=== PATIENT | female | born 1945 | race Caucasian/White ===

== ENCOUNTER → 2020-09-28 09:42 | Outpatient (CLI) | payer OTHER, SELFPAY ==
[2020-09-28 10:51] LABS: Estimated Glomerular Filt Rate > 60.0 mL/min (>60); HEMOLYSIS < 15 (0-50); Potassium 4.1 mmol/L (3.4-5.1)
== END ==
PROVIDERS: Referring Provider Family Medicine; Visit Provider Family Medicine
DX: I10 Essential (primary) hypertension (principal)
CPT/HCPCS: 36415; 82565; 83695; 84132

== ENCOUNTER → 2021-04-28 09:42 | Outpatient (CLI) | payer OTHER, SELFPAY ==
--- NOTE | 2021-04-28 09:52 | DI.MRI.S_ITS ---
PROCEDURE: MR HEAD/BRAIN WO CON INDICATIONS: Multiple sclerosis TECHNIQUE: Non-contrast axial T1 spin echo, axial T2 fast spin echo, sagittal and axial FLAIR, coronal T2 fast spin echo, axial gradient echo, axial diffusion and ADC through the brain. COMPARISON: Outside Facility, RG, MRI BRAIN WITHOUT CONTRAST, 08/09/2020, 11:54. FINDINGS: Image quality: Excellent. CSF spaces: Ventricles appear symmetric in size and shape. Basal cisterns are patent. No extra-axial fluid collections. Brain: No intracranial bleeds or mass effects. There is cerebral volume loss for age. Mild scattered areas of periventricular and subcortical white matter hyperintensities are present. They are all unchanged in size and number compared to prior exam. No lesions demonstrate restricted diffusion. Brainstem appears normal. Diffusion-weighted images show no acute ischemic insults. No chronic ischemic insults. Normal intravascular flow voids are present. Skull and face: Calvarial bone marrow is normal in signal. Orbits are normal. Sinuses: Sinuses demonstrate minimal pansinus mucosal thickening. No fluid levels. Mild fluid is noted in the left mastoid air cells. IMPRESSION: Stable appearance of periventricular and subcortical white matter hyperintensities in terms of size and number. While these have an appearance of chronic microvascular ischemic change, appearance can also be seen with demyelinating disease, as noted in clinical history. Correlation is recommended. Dictated by: Bre Guerrero M.D. on 04/29/2021 at 12:15 Approved by: Bre Guerrero M.D. on 04/29/2021 at 12:39
== END ==
PROVIDERS: PCP Student in an Organized Health Care Education/Training Program; Referring Provider Psychiatry & Neurology Neurology; Visit Provider Psychiatry & Neurology Neurology
DX: G35 Multiple sclerosis (principal)
CPT/HCPCS: 70551

== ENCOUNTER → 2021-05-27 10:30 | Outpatient (CLI) | payer OTHER, SELFPAY ==
--- NOTE | 2021-05-27 | DI.MG.S_ITS ---
UNILATERAL LEFT DIGITAL SCREENING MAMMOGRAM 3D/2D WITH CAD POST MASTECTOMY: 05/27/2021 CLINICAL: Routine screening. Routine screening. Personal history of right breast cancer. Comparison is made to exams dated: 05/25/2020 mammogram and 03/30/2019 mammogram - outside facility. There are scattered fibroglandular elements in left breast. Current study was also evaluated with a Computer Aided Detection (CAD) system. No significant masses, calcifications, or other findings are seen in the breast. There has been no significant interval change. IMPRESSION: NEGATIVE There is no mammographic evidence of malignancy. A 1 year screening mammogram is recommended. This exam was interpreted at Station ID: [id number]. NOTE: For mammograms, a report in lay terms will be sent to the patient. Approximately 15% of breast malignancies will not be visualized mammographically. In the management of a palpable breast mass, a negative mammogram must not discourage biopsy of a clinically suspicious lesion. Electronically Signed By: Ashley meraz/diego:05/27/2021 14:22:37 letter sent: Normal Exam ACR BI-RADS Category 1: Negative [id number]
== END ==
PROVIDERS: PCP Student in an Organized Health Care Education/Training Program; Referring Provider Student in an Organized Health Care Education/Training Program; Visit Provider Student in an Organized Health Care Education/Training Program
DX: Z12.31 Encounter for screening mammogram for malignant neoplasm of breast (principal); Z80.3 Family history of malignant neoplasm of breast
CPT/HCPCS: 77063; 77067

== ENCOUNTER 2021-06-23 14:58 | Observation (INO) | payer OTHER, SELFPAY ==
[2021-06-23 15:36] VITALS: BP 155/68; PULSE 55; RESP 19; TEMP 36.9; O2SAT 100; BMI 27.1
--- NOTE | 2021-06-23 15:44 | ED_ITS ---
HPI - Wound/Laceration <MACK Chowdhury - Last Filed: 06/23/21 19:56> General Chief Complaint: Wound/Laceration Stated Complaint: bit by her cat yesterday, swollen and painful Time Seen by Provider: 06/23/21 15:30 Source: patient Mode of arrival: Family Vehicle History of Present Illness HPI narrative: This is a pleasant 76-year-old female who presents to the emergency room today for left hand pain after a cat bite which occurred last night at 1800 hours. Patient states that overnight her pain has increased dramatically, she has erythema the dorsum of her left hand, decreased mobility with flexion and extension to all of her fingers, cat bite to the middle dorsum of her left hand over the MCP joint of her thumb. Patient states that she needs a new tetanus vaccination, she does not remember when her is was, she called the nurse line this morning and got a prescription of Augmentin and has taken 1 dose at 1015 today. Patient states that it has gotten much worse today even since taking her antibiotic, her pain is extreme, she states she took ibuprofen this morning early. She denies any drainage from the puncture wounds, they are currently scabbed over without any bleeding. She denies any allergy to antibiotics. Patient denies any fever, chills, nausea, vomiting, diarrhea, lightheadedness, or weakness. She states that the redness and pain has gotten worse quickly, she states that is her hand is so tender that she can not touch or show some but on anything. Related Data Home Medications Medication Instructions Recorded Confirmed atorvastatin 20 mg tablet 20 mg PO BEDTIME 06/23/21 06/23/21 hydrochlorothiazide 25 mg tablet 25 mg PO DAILY 06/23/21 06/23/21 levothyroxine 50 mcg tablet 50 mcg PO DAILY 06/23/21 06/23/21 liothyronine 5 mcg tablet 5 mcg PO DAILY 06/23/21 06/23/21 losartan 25 mg tablet 25 mg PO DAILY 06/23/21 06/23/21 Allergies Allergy/AdvReac Type Severity Reaction Status Date / Time No Known Drug Allergies Allergy Verified 06/23/21 16:10 Review of Systems <MACK Chowdhury - Last Filed: 06/23/21 19:56> Review of Systems Narrative: General: denies fever, chills, malaise, sweats, fatigue Head/Neck: denies headache, neck pain, dizziness Eyes: denies visual changes, eye pain Cardio: denies chest pain, palpitations, edema Respiratory: denies dyspnea, cough, orthopnea GI: denies abdominal pain, nausea, vomiting, or diarrhea : denies dysuria, hematuria, urinary retention, frequency or incontinence MSK: denies joint pain, muscle weakness Skin: Dorsum of left hand with redness, edematous, tracking medially up her wrist Neuro: denies numbness, tingling or sensation changes Patient History <MACK Chowdhury - Last Filed: 06/23/21 19:56> Medical History (Updated 06/23/21 @ 20:58 by Jojo Mccarty MD) Breast cancer Hyperlipidemia Hypertension Multiple sclerosis Surgical History (Updated 06/23/21 @ 20:58 by Jojo Mccarty MD) H/O mastectomy Family History (Updated 06/23/21 @ 20:59 by Jojo Mccarty MD) Father Hypertension Mother No problems noted. Social History household members: spouse Smoking Status: Former smoker alcohol intake: current Smoking Status: Former smoker tobacco type: cigarettes alcohol intake frequency: 0-2 drinks per day Substance Use Type: does not use Exam <MACK Chowdhury - Last Filed: 06/23/21 19:56> Narrative Exam Narrative: Independently reviewed vitals signs and nursing notes. General: cooperative, comfortable, in no acute distress, well developed and well groomed Head: atraumatic, symmetrical facial expressions Neck: supple, atraumatic, without lymphadenopathy. Eyes: pupils equal round and reactive, EOMI, conjunctiva normal Nose: nares patent, no rhinorrhea Mouth/Throat: moist mucus membranes Cardiovascular: regular rate and rhythm, no peripheral edema, warm extremities Respiratory: normal effort, able to speak in complete sentences, no audible wheezing, stridor, or rales. No retractions or tachypnea. GI: abdomen soft, nontender to palpation, nondistended, no masses, no exquisite tenderness with exam, without guarding or rebound. MSK: moves all extremities, ambulatory w/steady gait, neurovascularly intact, no weakness Skin: brisk capillary refill bilateral hands, left hand with erythema on the dorsum which extends past the wrist medially upper forearm, exquisite tenderness to the dorsum of her left hand, flexion and extension is limited approximately 30% due to pain, no fluctuance or palpable fluid collection although edema and erythema is present to the dorsum or left hand extends up the medial aspect of her left wrist along her veins Neuro: normal speech and cognition, A&O x3, normal tone Psych: mental status is grossly normal, congruent mood, normal affect, pleasant and cooperative Initial Vital Signs Initial Vital Signs: Vital Signs Temperature 98.4 F 06/23/21 15:36 Pulse Rate 55 L 06/23/21 15:36 Respiratory Rate 19 06/23/21 15:36 Blood Pressure 155/68 H 06/23/21 15:36 Pulse Oximetry 100 06/23/21 15:36 <Vincenzo Jimenez DO - Last Filed: 06/24/21 07:09> Initial Vital Signs Initial Vital Signs: Vital Signs Temperature 98.4 F 06/23/21 15:36 Pulse Rate 55 L 06/23/21 15:36 Respiratory Rate 06/23/21 15:36 Blood Pressure 155/68 H 06/23/21 15:36 Pulse Oximetry 100 06/23/21 15:36 Course <FLORA ChowdhuryP - Last Filed: 06/23/21 19:56> Orders Ordered: Acetaminophen (Acetaminophen 325 Mg Tablet) 975 mg PO Q8HR [facility] Last Admin: 06/24/21 06:07 Dose: 975 mg Documented by: Admin: 06/23/21 21:30 Dose: 975 mg Documented by: VALERIO Atorvastatin Calcium (Atorvastatin 20 Mg Tablet) 20 mg PO BEDTIME [facility] Last Admin: 06/23/21 21:30 Dose: 20 mg Documented by: VALERIO Docusate Sodium (Docusate 100 Mg Capsule) 100 mg PO BID [facility] Last Admin: 06/23/21 21:29 Dose: 100 mg Documented by: VALERIO Enoxaparin Sodium (Enoxaparin 40 Mg/0.4 Ml Syringe) 40 mg SUBCUT DAILY [facility] Hydrochlorothiazide (Hydrochlorothiazide 25 Mg Tablet) 25 mg PO DAILY [facility] Hydromorphone HCl (Hydromorphone 0.5 Mg Inj) 0.5 mg IV Q4H PRN PRN Reason: Breakthrough pain only (8-10) Last Admin: 06/23/21 21:32 Dose: 0.5 mg Documented by: VALERIO Ampicillin Sodium/Sulbactam (Sodium 3 gm/ Sodium Chloride) 100 mls @ 100 mls/hr IV Q6H [facility] Last Infusion: 06/24/21 06:08 Dose: 0 mls/hr Documented by: Admin: 06/24/21 03:10 Dose: 100 mls/hr Documented by: Infusion: 06/23/21 22:52 Dose: 0 mls/hr Documented by: Admin: 06/23/21 21:31 Dose: 100 mls/hr Documented by: VALERIO Ketorolac Tromethamine (Ketorolac 30 Mg/Ml Vial) 15 mg IV Q6H [facility] Stop: 06/26/21 20:59 Last Admin: 06/24/21 03:04 Dose: 15 mg Documented by: Admin: 06/23/21 21:33 Dose: 15 mg Documented by: VALERIO Levothyroxine Sodium (Levothyroxine 50 Mcg Tablet) 50 mcg PO DAILY@0600 [facility] Last Admin: 06/24/21 06:07 Dose: 50 mcg Documented by: VALERIO Liothyronine Sodium (Liothyronine 5 Mcg Tablet) 5 mcg PO DAILY [facility] Losartan Potassium (Losartan 25 Mg Tablet) 25 mg PO DAILY [facility] Naloxone HCl (Naloxone 0.4 Mg/Ml Vial) 0.2 mg IV Q2MIN PRN PRN Reason: Opiate Reversal Ondansetron HCl (Ondansetron 4 Mg/2 Ml Inj) 4 mg IV Q8HR PRN PRN Reason: Nausea And Vomiting Oxycodone HCl (Oxycodone Ir 5 Mg Tablet) 5 mg PO Q4HR PRN PRN Reason: Pain, Moderate (4-6) Sennosides (Sennosides 8.6 Mg Tablet) 17.2 mg PO BEDTIME [facility] Last Admin: 06/23/21 21:30 Dose: 17.2 mg Documented by: VALERIO Temazepam (Temazepam 15 Mg Capsule) 15 mg PO BEDTIME PRN PRN Reason: Sleep Last Admin: 06/23/21 21:30 Dose: 15 mg Documented by: VALERIO Discontinued Medications Diphtheria/Tetanus/Acell Pertussis (Tet,Diph,Pertuss(Acell),Vac/Pf 0.5 Ml Syringe) 0.5 ml IM .ONCE ONE Stop: 06/23/21 15:58 Last Admin: 06/23/21 16:12 Dose: 0.5 ml Documented by: IDA Hydromorphone HCl (Hydromorphone 0.5 Mg Inj) 0.5 mg IV NOW ONE Stop: 06/23/21 15:57 Last Admin: 06/23/21 16:38 Dose: 0.5 mg Documented by: VILMA Ampicillin Sodium/Sulbactam (Sodium 3 gm/ Sodium Chloride) 100 mls @ 100 mls/hr IV NOW ONE Stop: 06/23/21 15:55 Last Infusion: 06/23/21 18:45 Dose: 0 mls/hr Documented by: Admin: 06/23/21 16:51 Dose: 100 mls/hr Documented by: VILMA Ketorolac Tromethamine (Ketorolac 30 Mg/Ml Vial) 15 mg IV NOW ONE Stop: 06/23/21 15:55 Last Admin: 06/23/21 16:38 Dose: 15 mg Documented by: VILMA Ondansetron HCl (Ondansetron 4 Mg/2 Ml Inj) 4 mg IV NOW ONE Stop: 06/23/21 17:20 Last Admin: 06/23/21 17:35 Dose: 4 mg Documented by: VILMA Oxycodone/Acetaminophen (Oxycodone/Acetaminophen 5/325 Tablet) 1 tab PO NOW ONE Stop: 06/23/21 17:20 Last Admin: 06/23/21 17:34 Dose: 1 tab Documented by: VILMA Potassium Chloride (Potassium Chloride 20 Meq Tab) 40 meq PO NOW ONE Stop: 06/23/21 20:48 Last Admin: 06/23/21 21:29 Dose: 40 meq Documented by: VALERIO Consultations Consultation #1: Consultation with Dr. Muse who recommends admission to Medicine, she will see the patient tomorrow has consult, she recommends removing the scabs of the 2 puncture wounds from the cat, allowing drainage, this was cultured, culture is pending. She also recommend elevation, continuing Unasyn q.6 hours. Vital Signs Vital signs: Vital Signs - 8 hr 06/23/21 15:36 Temperature 98.4 F Pulse Rate 55 L Respiratory Rate 19 Blood Pressure 155/68 H Pulse Oximetry 100 <Vincenzo Jimenez, DO - Last Filed: 06/24/21 07:09> Orders Ordered: Acetaminophen (Acetaminophen 325 Mg Tablet) 975 mg PO Q8HR [facility] Last Admin: 06/24/21 06:07 Dose: 975 mg Documented by: Admin: 06/23/21 21:30 Dose: 975 mg Documented by: VALERIO Atorvastatin Calcium (Atorvastatin 20 Mg Tablet) 20 mg PO BEDTIME [facility] Last Admin: 06/23/21 21:30 Dose: 20 mg Documented by: VALERIO Docusate Sodium (Docusate 100 Mg Capsule) 100 mg PO BID [facility] Last Admin: 06/23/21 21:29 Dose: 100 mg Documented by: VALERIO Enoxaparin Sodium (Enoxaparin 40 Mg/0.4 Ml Syringe) 40 mg SUBCUT DAILY [facility] Hydrochlorothiazide (Hydrochlorothiazide 25 Mg Tablet) 25 mg PO DAILY [facility] Hydromorphone HCl (Hydromorphone 0.5 Mg Inj) 0.5 mg IV Q4H PRN PRN Reason: Breakthrough pain only (8-10) Last Admin: 06/23/21 21:32 Dose: 0.5 mg Documented by: VALERIO Ampicillin Sodium/Sulbactam (Sodium 3 gm/ Sodium Chloride) 100 mls @ 100 mls/hr IV Q6H [facility] Last Infusion: 06/24/21 06:08 Dose: 0 mls/hr Documented by: Admin: 06/24/21 03:10 Dose: 100 mls/hr Documented by: Infusion: 06/23/21 22:52 Dose: 0 mls/hr Documented by: Admin: 06/23/21 21:31 Dose: 100 mls/hr Documented by: VALERIO Ketorolac Tromethamine (Ketorolac 30 Mg/Ml Vial) 15 mg IV Q6H [facility] Stop: 06/26/21 20:59 Last Admin: 06/24/21 03:04 Dose: 15 mg Documented by: Admin: 06/23/21 21:33 Dose: 15 mg Documented by: VALERIO Levothyroxine Sodium (Levothyroxine 50 Mcg Tablet) 50 mcg PO DAILY@0600 [facility] Last Admin: 06/24/21 06:07 Dose: 50 mcg Documented by: VALERIO Liothyronine Sodium (Liothyronine 5 Mcg Tablet) 5 mcg PO DAILY [facility] Losartan Potassium (Losartan 25 Mg Tablet) 25 mg PO DAILY [facility] Naloxone HCl (Naloxone 0.4 Mg/Ml Vial) 0.2 mg IV Q2MIN PRN PRN Reason: Opiate Reversal Ondansetron HCl (Ondansetron 4 Mg/2 Ml Inj) 4 mg IV Q8HR PRN PRN Reason: Nausea And Vomiting Oxycodone HCl (Oxycodone Ir 5 Mg Tablet) 5 mg PO Q4HR PRN PRN Reason: Pain, Moderate (4-6) Sennosides (Sennosides 8.6 Mg Tablet) 17.2 mg PO BEDTIME [facility] Last Admin: 06/23/21 21:30 Dose: 17.2 mg Documented by: VALERIO Temazepam (Temazepam 15 Mg Capsule) 15 mg PO BEDTIME PRN PRN Reason: Sleep Last Admin: 06/23/21 21:30 Dose: 15 mg Documented by: VALERIO Discontinued Medications Diphtheria/Tetanus/Acell Pertussis (Tet,Diph,Pertuss(Acell),Vac/Pf 0.5 Ml Syringe) 0.5 ml IM .ONCE ONE Stop: 06/23/21 15:58 Last Admin: 06/23/21 16:12 Dose: 0.5 ml Documented by: IDA Hydromorphone HCl (Hydromorphone 0.5 Mg Inj) 0.5 mg IV NOW ONE Stop: 06/23/21 15:57 Last Admin: 06/23/21 16:38 Dose: 0.5 mg Documented by: VILMA Ampicillin Sodium/Sulbactam (Sodium 3 gm/ Sodium Chloride) 100 mls @ 100 mls/hr IV NOW ONE Stop: 06/23/21 15:55 Last Infusion: 06/23/21 18:45 Dose: 0 mls/hr Documented by: Admin: 06/23/21 16:51 Dose: 100 mls/hr Documented by: VILMA Ketorolac Tromethamine (Ketorolac 30 Mg/Ml Vial) 15 mg IV NOW ONE Stop: 06/23/21 15:55 Last Admin: 06/23/21 16:38 Dose: 15 mg Documented by: VILMA Ondansetron HCl (Ondansetron 4 Mg/2 Ml Inj) 4 mg IV NOW ONE Stop: 06/23/21 17:20 Last Admin: 06/23/21 17:35 Dose: 4 mg Documented by: VILMA Oxycodone/Acetaminophen (Oxycodone/Acetaminophen 5/325 Tablet) 1 tab PO NOW ONE Stop: 06/23/21 17:20 Last Admin: 06/23/21 17:34 Dose: 1 tab Documented by: VILMA Potassium Chloride (Potassium Chloride 20 Meq Tab) 40 meq PO NOW ONE Stop: 06/23/21 20:48 Last Admin: 06/23/21 21:29 Dose: 40 meq Documented by: VALERIO Vital Signs Vital signs: Vital Signs - 8 hr 06/23/21 15:36 Temperature 98.4 F Pulse Rate 55 L Respiratory Rate 19 Blood Pressure 155/68 H Pulse Oximetry 100 MDM - Wound/Laceration <FLORA ChowdhuryP - Last Filed: 06/23/21 19:56> Lab Data Result diagrams: 06/23/21 21:20 06/24/21 04:08 Labs: Lab Results 06/23/21 06/23/21 06/23/21 Range/Units 16:27 16:27 16:45 WBC 11.7 H (4.5-11.0) X10^3/uL RBC 5.03 (4.0-5.2) X10^6/uL Hgb 11.6 L (12.0-16.0) g/dL Hct 35.9 L (36-46) % MCV 71.3 L (80-100) fL MCH 23.0 L (26-34) PG MCHC 32.3 (30-36) % RDW 14.4 (11.6-14.8) % Plt Count 207 (150-400) X10^3/uL Neut % (Auto) 65.1 (50-75) % Lymph % (Auto) 23.9 L (25-40) % [place] % (Auto) 7.7 (3-14) % Eos % (Auto) 2.1 (2-4) % Baso % (Auto) 1.2 (0-2) % Neut # (Auto) 7600 H (3161-8813) /uL Lymph # (Auto) 2800 (4424-8787) /uL [place] # (Auto) 900 (0-900) /uL Eos # (Auto) 200 (0-450) /uL Baso # (Auto) 100 (0-100) /uL ESR 11 (0-20) MM/HR Sodium 141 (137-145) mmol/L Potassium 3.3 L (3.4-5.1) mmol/L Chloride 105 (98-107) mmol/L Carbon Dioxide 30 (22-32) mmol/L BUN 16 (7-17) mg/dL Creatinine 0.79 (0.52-1.04) mg/dL Estimated GFR > 60 (>60) mL/min BUN/Creatinine Ratio 20.3 (6-22) Glucose 126 H (80-110) mg/dL Calcium 9.9 (8.4-10.2) mg/dL Total Bilirubin 0.4 (0.2-1.3) mg/dL AST 27 (14-36) IU/L ALT 21 (<35) IU/L Alkaline Phosphatase 65 (38-126) U/L C-Reactive Protein 2.2 H (<1.0) mg/dL Total Protein 7.8 (6.3-8.2) g/dL Albumin 4.6 (3.5-5.0) g/dL Globulin 3.2 (1.7-4.1) g/dL Albumin/Globulin Ratio 1.4 (1.0-2.8) SARS-CoV-2 (PCR) Negative (Negative) MDM Narrative Medical decision making narrative: This is a 76-year-old female who presents to the emergency department with a cat bite to the dorsum of her which occurred at 1800 hours yesterday evening. Patient started Augmentin this morning and received 1 dose at 1000 hours. She presents to the ER after worsening erythema and pain to the dorsum of her left hand today. Patient has decreased range of motion, reduced by approximately 50% to all fingers in extension, and proximally reduced by 30% with flexion. No tenderness to the palmar aspect of her hand, exquisite tenderness to the dorsum of her left hand with erythema and edema which extends to the mid forearm. There is not a distinct line of erythema and normal tone, erythema and edema are present to the dorsum of her left hand and extends up the radial aspect with lymphangitis and exquisite tenderness. CT with contrast of the left upper extremity obtained to rule out fluid collection or subcutaneous gas. CT shows diffuse soft tissue swelling consistent with cellulitis, no subcutaneous gas collection, fluid within the extensor tendon sheath is suspicious for infectious tendinitis, no drainable or organized fluid collection at this time. No fracture, dislocation, or foreign body. Patient's tetanus was updated, Unasyn 3 g was given after blood cultures were obtained. Consultation with Dr. Bourne who recommends admission with IV Unasyn q.6 hours, elevation, pain control. She was given Zofran, Dilaudid, Toradol and Percocet for her pain which was helpful. Dr. Toledo accepts patient for admission, she will continue on q.6 hours Unasyn, received her tetanus in the emergency department, her Augmentin is currently held. <Vincenzo Jimenez, DO - Last Filed: 06/24/21 07:09> Lab Data Labs: Lab Results 06/23/21 06/23/21 06/23/21 Range/Units 16:27 16:27 16:45 WBC 11.7 H (4.5-11.0) X10^3/uL RBC 5.03 (4.0-5.2) X10^6/uL Hgb 11.6 L (12.0-16.0) g/dL Hct 35.9 L (36-46) % MCV 71.3 L (80-100) fL MCH 23.0 L (26-34) PG MCHC 32.3 (30-36) % RDW 14.4 (11.6-14.8) % Plt Count 207 (150-400) X10^3/uL Neut % (Auto) 65.1 (50-75) % Lymph % (Auto) 23.9 L (25-40) % [place] % (Auto) 7.7 (3-14) % Eos % (Auto) 2.1 (2-4) % Baso % (Auto) 1.2 (0-2) % Neut # (Auto) 7600 H (3617-2206) /uL Lymph # (Auto) 2800 (1100-3794) /uL [place] # (Auto) 900 (0-900) /uL Eos # (Auto) 200 (0-450) /uL Baso # (Auto) 100 (0-100) /uL ESR 11 (0-20) MM/HR Sodium 141 (137-145) mmol/L Potassium 3.3 L (3.4-5.1) mmol/L Chloride 105 (98-107) mmol/L Carbon Dioxide 30 (22-32) mmol/L BUN 16 (7-17) mg/dL Creatinine 0.79 (0.52-1.04) mg/dL Estimated GFR > 60 (>60) mL/min BUN/Creatinine Ratio 20.3 (6-22) Glucose 126 H (80-110) mg/dL Calcium 9.9 (8.4-10.2) mg/dL Total Bilirubin 0.4 (0.2-1.3) mg/dL AST 27 (14-36) IU/L ALT 21 (<35) IU/L Alkaline Phosphatase 65 (38-126) U/L C-Reactive Protein 2.2 H (<1.0) mg/dL Total Protein 7.8 (6.3-8.2) g/dL Albumin 4.6 (3.5-5.0) g/dL Globulin 3.2 (1.7-4.1) g/dL Albumin/Globulin Ratio 1.4 (1.0-2.8) SARS-CoV-2 (PCR) Negative (Negative) Discharge Plan Departure Patient Disposition: Admitted As Inpatient Clinical Impression: Extensor tendinitis of hand, Cat bite involving extremity Cellulitis Qualifiers: Site of cellulitis: extremity Site of cellulitis of extremity: upper extremity Laterality: left Qualified Code(s): L03.114 - Cellulitis of left upper limb Admit Date/Time: 06/23/21 18:50 Admit Provider: Rogelio Toledo <Vincenzo Jimenez DO - Last Filed: 06/24/21 07:09> Cosign ED Attending Kyleature Attestation: I was immediately available in the department for consultation. This documentation has been reviewed and I agree with assessment and plan. Supervised by Vincenzo Jimenez DO
--- NOTE | 2021-06-23 15:54 | DI.CT.S_ITS ---
PROCEDURE: CT UE LT W CON INDICATIONS: cat bite dorsum left hand TECHNIQUE: After the administration of intravenous contrast, 3 mm axial sections acquired of the left distal forearm wrist and hand with coronal and sagittal reformats. COMPARISON: None. FINDINGS: Image quality: Excellent. Bones: No fracture or dislocation. No bony erosion or periarticular the reaction. Soft tissues: Soft tissue swelling. There is fluid in the extensor tendon sheath (series 4 image 141; series 8 image 96). No subcutaneous gas collection. IMPRESSION: 1. Diffuse soft tissue swelling consistent with cellulitis. 2. Fluid within the extensor tendon sheath suspicious for infectious tendinitis. No drainable, organized fluid collection at this time. Recommend clinical correlation and follow-up imaging if clinically indicated. The result was discussed with Dr. Grant. Dictated by: Devorah Oscar M.D. on 06/23/2021 at 17:01 Approved by: Devorah Oscar M.D. on 06/23/2021 at 17:15
[2021-06-23] MEDS: TET,DIPH,PERTUSS(ACELL),VAC/PF 0.5 ML SYRINGE IM (16:12)
[2021-06-23 16:35] LABS: Add Manual Diff / Slide Review NO; Basophils Absolute Auto 100 /uL (0-100); Basophils Percent Auto 1.2 % (0-2); Eosinophils Absolute Auto 200 /uL (0-450); Eosinophils Percent Auto 2.1 % (2-4); Hematocrit 35.9 % (36-46); Hemoglobin 11.6 g/dL (12.0-16.0); Lymphocytes Absolute Auto 2800 /uL (1100-4500); Lymphocytes Percent Auto 23.9 % (25-40); Mean Corpuscular HGB Conc 32.3 % (30-36); Mean Corpuscular Volume 71.3 fL (80-100); Monocytes Absolute Auto 900 /uL (0-900); Monocytes Percent Auto 7.7 % (3-14); Neutrophils Absolute Auto 7600 /uL (1500-7000); Neutrophils Percent Auto 65.1 % (50-75); Platelet Count 207 X10^3/uL (150-400); Red Blood Cell Count 5.03 X10^6/uL (4.0-5.2); Red Cell Distribution Width 14.4 % (11.6-14.8); White Blood Cell Count 11.7 X10^3/uL (4.5-11.0)
[2021-06-23] MEDS: HYDROMORPHONE 0.5 MG INJ IV ×2 (16:38→21:32)
[2021-06-23] MEDS: KETOROLAC 30 MG/ML VIAL 15 MG IV ×2 (16:38→21:33)
[2021-06-23] MEDS: AMPICILLIN/SULBACTAM 3 GM 3 GM in SODIUM CHLORIDE 0.9% 100 ML IV ×2 (16:51→21:31)
[2021-06-23 16:55] LABS: Erythrocyte Sedimentation Rate 11 MM/HR (0-20)
[2021-06-23 17:00] LABS: Alanine Aminotransferase 21 IU/L (<35); Albumin 4.6 g/dL (3.5-5.0); Albumin Globulin Ratio 1.4 (1.0-2.8); Alkaline Phosphatase 65 U/L (38-126); Aspartate Aminotransferase 27 IU/L (14-36); BUN Creatinine Ratio 20.3 (6-22); Bilirubin Total 0.4 mg/dL (0.2-1.3); Blood Urea Nitrogen 16 mg/dL (7-17); C-Reactive Protein Quant 2.2 mg/dL (<1.0); Calcium 9.9 mg/dL (8.4-10.2); Carbon Dioxide 30 mmol/L (22-32); Chloride 105 mmol/L (98-107); Estimated Glomerular Filt Rate > 60 mL/min (>60); Globulin 3.2 g/dL (1.7-4.1); Glucose 126 mg/dL (80-110); HEMOLYSIS < 15 (0-50); Potassium 3.3 mmol/L (3.4-5.1); Sodium 141 mmol/L (137-145); Total Protein 7.8 g/dL (6.3-8.2)
[2021-06-23 17:25] LABS: COVID19 -Nasal RAPID Negative (Negative)
[2021-06-23] MEDS: OXYCODONE/ACETAMINOPHEN 5/325 TABLET 1 TAB PO (17:34)
[2021-06-23] MEDS: ONDANSETRON 4 MG/2 ML INJ IV (17:35)
[2021-06-23 19:52] VITALS: BMI 27.2
[2021-06-23 20:43] VITALS: BP 159/62; PULSE 60; RESP 15; TEMP 36.5; O2SAT 100
--- NOTE | 2021-06-23 20:49 | PM.HP.1 ---
History of Present Illness History of Present Illness Date Patient Seen: 06/23/21 Chief complaint: bit by her cat yesterday, swollen and painful Narrative: 76y/o female with history hypertension, hyperlipidemia, hypothyroidism,multiple sclerosis who was lifting her cat and sustained a bit to her left hand. She called the dispute resolution analyst line and augmentin was prescribed. She took the augmentin but noted increased swelling, pain, and redness of the left hand. She was unable to sleep last night because of the severe pain. She called the dispute resolution analyst line again and was instructed to come to the emergency department for further evaluation. The patient underwent CT of the left hand which revealed evidence to suggest tenosynovitis. She was started on Unasyn, given pain medications and admitted to the hospital. Patient reports her hand is starting to throb now. She has had no fever, chills, nausea, or vomiting. She denies diarrhea, shortness of breath, headache, or any other joint pains or rashes. Patient is admitted to the hospital for inpatient treatment of tenosynovitis following a cat bite. Patient History Medical History (Updated 06/23/21 @ 20:58 by Jojo Mccarty MD) Breast cancer Hyperlipidemia Hypertension Multiple sclerosis Surgical History (Updated 06/23/21 @ 20:58 by Jojo Mccarty MD) H/O mastectomy Family & Social History Family History (Updated 06/23/21 @ 20:58 by Jojo Mccarty MD) Father Hypertension Mother No problems noted. Social History: household members spouse Prior Living Arrangements House Safety & Behavioral: Feels Safe in Current Yes Environment Been Physically Hurt or No Threatened By a Person Tobacco & Substance use: Smoking Status Former smoker alcohol intake current alcohol intake frequency 0-2 drinks per day Substance Use Type does not use Meds Home Medications and Allergies Home Medications Medication Instructions Recorded Confirmed Type atorvastatin 20 mg tablet 20 mg PO BEDTIME 06/23/21 06/23/21 History hydrochlorothiazide 25 mg tablet 25 mg PO DAILY 06/23/21 06/23/21 History levothyroxine 50 mcg tablet 50 mcg PO DAILY 06/23/21 06/23/21 History liothyronine 5 mcg tablet 5 mcg PO DAILY 06/23/21 06/23/21 History losartan 25 mg tablet 25 mg PO DAILY 06/23/21 06/23/21 History Allergies Allergy/AdvReac Type Severity Reaction Status Date / Time No Known Drug Allergies Allergy Verified 06/23/21 16:10 Review of Systems Review of Systems Narrative: 10 point review of systems is negative Exam Vital Signs (past 8 hours): - 06/23/21 15:36 Temperature 98.4 F Pulse Rate 55 L Respiratory Rate 19 Blood Pressure 155/68 H Pulse Oximetry 100 Oxygen Delivery Method Room Air Narrative Exam Narrative: Pleasant female lying in bed uncomfortable in pain HENMT Other: NC/AT, PERRLA, EOMI, Sclera anicteric Neck Other: Supple without adenopathy Resp Other: Lungs: clear to auscultation Cardio Other: CV: RRR nl Sl S2 2/6 SHOLA GI Other: Abd: soft/ non tender/ non distended, no HSM Skin Other: Left hand with erythema, edema, tenderness to palpation, patient has difficulting flexing the left wrist Neuro Other: non focal Extrem Other: no edema Psych Other: Normal judgment, thought content, thought process Appropriate mood and affect Objective Labs Result Diagrams: 06/23/21 16:27 06/23/21 16:27 Labs: Laboratory Results - last 24 hr 06/23/21 06/23/21 06/23/21 16:27 16:27 16:45 WBC 11.7 H RBC 5.03 Hgb 11.6 L Hct 35.9 L MCV 71.3 L MCH 23.0 L MCHC 32.3 RDW 14.4 Plt Count 207 Neut % (Auto) 65.1 Lymph % (Auto) 23.9 L [place] % (Auto) 7.7 Eos % (Auto) 2.1 Baso % (Auto) 1.2 Neut # (Auto) 7600 H Lymph # (Auto) 2800 [place] # (Auto) 900 Eos # (Auto) 200 Baso # (Auto) 100 ESR 11 Sodium 141 Potassium 3.3 L Chloride 105 Carbon Dioxide 30 BUN 16 Creatinine 0.79 Estimated GFR > 60 BUN/Creatinine Ratio 20.3 Glucose 126 H Calcium 9.9 Total Bilirubin 0.4 AST 27 ALT 21 Alkaline Phosphatase 65 C-Reactive Protein 2.2 H Total Protein 7.8 Albumin 4.6 Globulin 3.2 Albumin/Globulin Ratio 1.4 SARS-CoV-2 (PCR) Negative 06/23/21 20:00 WBC RBC Hgb Hct MCV MCH MCHC RDW Plt Count Neut % (Auto) Lymph % (Auto) [place] % (Auto) Eos % (Auto) Baso % (Auto) Neut # (Auto) Lymph # (Auto) [place] # (Auto) Eos # (Auto) Baso # (Auto) ESR Sodium Potassium Chloride Carbon Dioxide BUN Creatinine Estimated GFR BUN/Creatinine Ratio Glucose Calcium Total Bilirubin AST ALT Alkaline Phosphatase C-Reactive Protein Total Protein Albumin Globulin Albumin/Globulin Ratio SARS-CoV-2 (PCR) Cancelled Assessment & Plan Assessment & Plan narrative: 76 y/o female with a history of hypertension, hyperlipidemia,multiple sclerosis, and breast cancer, admitted with tenosynovitis following a cat bit to the left hand Patient with pain, erythema, edema despite one dose of augmentin WBC elevated at 11.7 CT scan reveals ?Diffuse soft tissue swelling consistent with cellulitis. Fluid within the extensor tendon sheath suspicious for infectious tendinitis.? No drainable, organized fluid collection at this time.? Recommend clinical correlation and follow-up imaging if clinically indicated. Dr. Bourne, orthopedics consulted and will evaluate in am Will continue Unasyn 3.0 grams IV every six hours Tylenol, dilaudid, tordol for pain 2. Hypertension Continue HCTZ and Losartan Blood pressure elevated tonight, will observe given pain etc 3. Hyperlipidemia Continue statin 4. Hypokalemia secondary to HCTZ will replace with 40 po potassium 5. History of Multple Sclerosis in remission 6. Hypothyroidism Continue Levothryoxine and Liothyrone DVT prophylaxis, will start lovenox 40 mg sq daily Patient indicates her is her surrogate decision maker. She would like to be a full code and will note this in her record I have utilized all available methods to review, updated, and confirm the patients current medications Time Spent With Patient Critical Care time: I spent a total of [] minutes of critical care time on this patient's care today; this time is exclusive of procedural time.
[2021-06-23] MEDS: DOCUSATE 100 MG CAPSULE PO (21:29)
[2021-06-23] MEDS: POTASSIUM CHLORIDE 20 MEQ TAB 40 MEQ PO (21:29)
[2021-06-23] MEDS: ACETAMINOPHEN 325 MG TABLET 975 MG PO (21:30)
[2021-06-23] MEDS: SENNOSIDES 8.6 MG TABLET 17.2 MG PO (21:30)
[2021-06-23] MEDS: TEMAZEPAM 15 MG CAPSULE PO (21:30)
[2021-06-23] MEDS: ATORVASTATIN 20 MG TABLET PO (21:30)
[2021-06-23 21:38] LABS: Add Manual Diff / Slide Review NO; Basophils Absolute Auto 100 /uL (0-100); Basophils Percent Auto 0.8 % (0-2); Eosinophils Absolute Auto 200 /uL (0-450); Eosinophils Percent Auto 1.4 % (2-4); Hematocrit 33.3 % (36-46); Hemoglobin 10.8 g/dL (12.0-16.0); Lymphocytes Absolute Auto 2100 /uL (1100-4500); Lymphocytes Percent Auto 18.5 % (25-40); Mean Corpuscular HGB Conc 32.4 % (30-36); Mean Corpuscular Hemoglobin 23.1 PG (26-34); Mean Corpuscular Volume 71.4 fL (80-100); Monocytes Absolute Auto 1000 /uL (0-900); Monocytes Percent Auto 8.9 % (3-14); Neutrophils Absolute Auto 7900 /uL (1500-7000); Neutrophils Percent Auto 70.4 % (50-75); Platelet Count 177 X10^3/uL (150-400); Red Blood Cell Count 4.67 X10^6/uL (4.0-5.2); Red Cell Distribution Width 14.4 % (11.6-14.8); White Blood Cell Count 11.2 X10^3/uL (4.5-11.0)
[2021-06-23 22:45] VITALS: BP 148/64; PULSE 51; RESP 16; TEMP 36.1; O2SAT 96
[2021-06-24] VITALS (7 sets, daily range): BP systolic 126–175; BP diastolic 56–73; PULSE 47–58; RESP 14–18; TEMP 36.3–36.7; O2SAT 92–100
[2021-06-24] MEDS: KETOROLAC 30 MG/ML VIAL 15 MG IV ×3 (03:04→20:46)
[2021-06-24] MEDS: AMPICILLIN/SULBACTAM 3 GM 3 GM in SODIUM CHLORIDE 0.9% 100 ML IV ×4 (03:10→23:45)
[2021-06-24 05:18] LABS: Blood Urea Nitrogen 17 mg/dL (7-17); Calcium 8.9 mg/dL (8.4-10.2); Carbon Dioxide 27 mmol/L (22-32); Chloride 106 mmol/L (98-107); Estimated Glomerular Filt Rate > 60 mL/min (>60); Glucose 110 mg/dL (80-110); HEMOLYSIS < 15 (0-50); Potassium 4.2 mmol/L (3.4-5.1); Sodium 137 mmol/L (137-145)
[2021-06-24 05:33] LABS: Procalcitonin 0.07 ng/mL (<0.5)
[2021-06-24] MEDS: LEVOTHYROXINE 50 MCG TABLET PO (06:07)
[2021-06-24] MEDS: ACETAMINOPHEN 325 MG TABLET 975 MG PO ×3 (06:07→20:48)
--- NOTE | 2021-06-24 08:10 | P.CONS_ITS ---
History of Present Illness Consult details Date Patient Seen: 06/24/21 Time Patient Seen: 08:11 Chief complaint: bit by her cat yesterday, swollen and painful Reason for consult: Left hand infectioncelllulitis cat bite Requesting provider: Clarita Grant Narrative: 76-year-old female with her on Thursday evening June 22. Might was to the dorsum of her left hand. She endorses increasing pain and the last day and inability to move fingers. She all the nurse line got a prescription for Augmentin to 1 pill. Pain progressed and she came to the emergency room last night. Examination demonstrated 2 puncture wounds over the dorsal hand and swelling. She was given Unasyn and admitted for the cellulitis protocol. CT was done. No obvious abscess or foreign body. Tetanus was updated states yesterday she could not bend her fingers or wrist at all. States doing better this morning. Does demonstrate some finger flexion and wrist flexion and extension. Meds Home Medications and Allergies Home Medications Medication Instructions Recorded Confirmed Type atorvastatin 20 mg tablet 20 mg PO BEDTIME 06/23/21 06/23/21 History hydrochlorothiazide 25 mg tablet 25 mg PO DAILY 06/23/21 06/23/21 History levothyroxine 50 mcg tablet 50 mcg PO DAILY 06/23/21 06/23/21 History liothyronine 5 mcg tablet 5 mcg PO DAILY 06/23/21 06/23/21 History losartan 25 mg tablet 25 mg PO DAILY 06/23/21 06/23/21 History Allergies Allergy/AdvReac Type Severity Reaction Status Date / Time No Known Drug Allergies Allergy Verified 06/23/21 16:10 Review of Systems Review of Systems Narrative: Pain In the left hand, difficulty with motion. No fevers chills nausea or vomiting, no numbness no tingling no shortness of breath no chest pain ROS: Yes All systems reviewed with the patient and are negative except as otherwise documented Exam Vital Signs (past 8 hours): - 06/24/21 03:29 Temperature 97.4 F L Pulse Rate 51 L Respiratory Rate 14 Blood Pressure 170/73 H Pulse Oximetry 92 Oxygen Delivery Method Room Air Oxygen Flow Rate 2 Narrative Exam Narrative: Alert oriented female no acute distress HEENT exam normocephalic atraumatic Respiratory exam unlabored on room air lungs clear to auscultation CV exam regular rate MSK exam--left hand is examined. Is swelling over the dorsum of the hand. Two small puncture [place] 1 over the thumb metacarpal shaft and the other over the dorsum of the hand in the area of the metacarpal shafts. There are no lesions over joints. No fluctuance. And cellulitis within demarcation area over the dorsum hand just proximal to the wrist. Demonstrates wrist flexion extension finger flexion extension with limited range of motion. cannot form full composite fist pain. There is no fusiform swelling of the digits. No can able signs. No swelling or tenderness at all on the flexor surfaces. All swelling limited to dorsal hand. 2+ palpable radial pulse. Sensation intact to light touch. Forearm compartments are soft. No pain or swelling at the elbow. Full elbow range of motion. No streaking Objective Imaging CT scan left hand upper extremity: My impression: 0 fractures. No abscess. Fluid dorsally around extensors. No foreign bodies no drainable collections Labs Result Diagrams: 06/23/21 21:20 06/24/21 04:08 Labs: Laboratory Results - last 24 hr 06/23/21 06/23/21 06/23/21 16:27 16:27 16:45 WBC 11.7 H RBC 5.03 Hgb 11.6 L Hct 35.9 L MCV 71.3 L MCH 23.0 L MCHC 32.3 RDW 14.4 Plt Count 207 Neut % (Auto) 65.1 Lymph % (Auto) 23.9 L [place] % (Auto) 7.7 Eos % (Auto) 2.1 Baso % (Auto) 1.2 Neut # (Auto) 7600 H Lymph # (Auto) 2800 [place] # (Auto) 900 Eos # (Auto) 200 Baso # (Auto) 100 ESR 11 Sodium 141 Potassium 3.3 L Chloride 105 Carbon Dioxide 30 BUN 16 Creatinine 0.79 Estimated GFR > 60 BUN/Creatinine Ratio 20.3 Glucose 126 H Calcium 9.9 Total Bilirubin 0.4 AST 27 ALT 21 Alkaline Phosphatase 65 C-Reactive Protein 2.2 H Total Protein 7.8 Albumin 4.6 Globulin 3.2 Albumin/Globulin Ratio 1.4 Procalcitonin Nasal Screen MRSA (PCR) SARS-CoV-2 (PCR) Negative 06/23/21 06/23/21 06/23/21 20:00 20:00 21:20 WBC 11.2 H RBC 4.67 Hgb 10.8 L Hct 33.3 L MCV 71.4 L MCH 23.1 L MCHC 32.4 RDW 14.4 Plt Count 177 Neut % (Auto) 70.4 Lymph % (Auto) 18.5 L [place] % (Auto) 8.9 Eos % (Auto) 1.4 L Baso % (Auto) 0.8 Neut # (Auto) 7900 H Lymph # (Auto) 2100 [place] # (Auto) 1000 H Eos # (Auto) 200 Baso # (Auto) 100 ESR Sodium Potassium Chloride Carbon Dioxide BUN Creatinine Estimated GFR BUN/Creatinine Ratio Glucose Calcium Total Bilirubin AST ALT Alkaline Phosphatase C-Reactive Protein Total Protein Albumin Globulin Albumin/Globulin Ratio Procalcitonin Nasal Screen MRSA (PCR) Negative for mrsa SARS-CoV-2 (PCR) Cancelled 06/24/21 06/24/21 04:08 04:08 WBC RBC Hgb Hct MCV MCH MCHC RDW Plt Count Neut % (Auto) Lymph % (Auto) [place] % (Auto) Eos % (Auto) Baso % (Auto) Neut # (Auto) Lymph # (Auto) [place] # (Auto) Eos # (Auto) Baso # (Auto) ESR Sodium 137 Potassium 4.2 Chloride 106 Carbon Dioxide 27 BUN 17 Creatinine 0.81 Estimated GFR > 60 BUN/Creatinine Ratio 21.0 Glucose 110 Calcium 8.9 Total Bilirubin AST ALT Alkaline Phosphatase C-Reactive Protein Total Protein Albumin Globulin Albumin/Globulin Ratio Procalcitonin 0.07 Nasal Screen MRSA (PCR) SARS-CoV-2 (PCR) [facility] Medical History Breast cancer Hyperlipidemia Hypertension Multiple sclerosis Surgical History H/O mastectomy Family History Father Hypertension Mother No problems noted. Social History household members: spouse Tobacco & Substance Use Smoking Status: Former smoker alcohol intake: current Assessment & Plan Assessment and plan (1) Cat bite involving extremity: Problem details: Cat bite with dorsal hand cellulitis--exam somewhat better this morning after only a dose or 2 of IV antibiotics. Cellulitis within demarcations.--clinical picture improving. Continue IV antibiotics dosing throughout the day, monitor progress. Diet as tolerated. If continues to improve then would be able to transition to oral antibiotics and discharge (probably tomorrow). Discussed working on motion as pain improves to combat stiffness. I do not see any drainable collections /or surgical indications. Status: Acute (2) Cellulitis: Problem details: see above Qualifiers: Laterality: left Site of cellulitis: extremity Site of cellulitis of extremity: upper extremity Qualified Code(s): L03.114 - Cellulitis of left upper limb Status: Acute (3) Extensor tendinitis of hand: Problem details: see above Status: Acute COVID-19 COVID-19 status: Negative Result date/Date tested (Pos, Neg/Pending): 06/23/21 Time Spent With Patient Time with patient: less than 30 minutes Critical Care time: I spent a total of [] minutes of critical care time on this patient's care to day; this time is exclusive of procedural time.
[2021-06-24] MEDS: DOCUSATE 100 MG CAPSULE PO ×2 (13:20→20:46)
--- NOTE | 2021-06-24 16:00 | CM.DANOTE ---
Patient is a 76 yo female who was admitted on 06/23/21 for Cat Bite. Pt has [facility] for insurance and her PCP is Dr. Yvette Humphries. EMR was reviewed. Per MD, pt with hx of MS and hypertension and bit by her cat and admitted for tenosynovitis. Per Ortho, pt on IV-Abx and if continues to improve will plan to switch her to oral abx and likely d/c tomorrow. SW met bedside with pt and explained role and pt confirms she lives at home with her spouse in [place] and both are active and independent at baseline and pt drives and does not use DME. Pt denies any hx of HH or SNF or admission to [facility]. Pt confirms her pain and swelling have been reduced and she is feeling a little better and does not anticipate any d/c needs as long as she can discharge on oral abx. Spouse will be bedside later to visit and plans to provide transport home at d/c. Plan: SW to follow closely tomorrow if pt can be transitioned to oral abx and discharge to home when stable. SURENDRA Parson Discharge Planning/Care Management Advanced directive, confirm from FAMILY Start: 06/23/21 20:05 Freq: Q24H Status: Active Protocol: Document 06/23/21 20:05 MW (Rec: 06/23/21 20:07 MW [id number]) Advance Directive, confirm on record Time 20:07 Person contacted pt Copy received No
--- NOTE | 2021-06-24 16:10 | PC.NURSE ---
1000 ABX finished late, retime to 1730
--- NOTE | 2021-06-24 17:04 | PM.PN.1 ---
Subjective Subjective Date Patient Seen: 06/24/21 Interval history: This is a 76-year-old female with a past medical history of hypertension, hypothyroidism, and hyperlipidemia who was admitted after a cat bite with tenosynovitis. Her swelling is improving today, and she has a bit more range of motion of her left hand on IV antibiotics. Orthopedic surgery is following and recommended the patient continue on IV antibiotics for now. Exam Vital Signs (past 8 hours): - 06/24/21 13:03 Temperature 97.8 F Pulse Rate 58 L Respiratory Rate 18 Blood Pressure 156/67 H Pulse Oximetry 100 Oxygen Delivery Method Room Air Oxygen Flow Rate 0 Narrative Exam Narrative: General:? Patient is well developed and well nourished, in no distress at this time. Lungs:? CTA b/l no wheezing rhonchi or rales. Cardio:?RRR no m/r/g. Extremities: L hand erythema, warmth tenderness and swelling to distal forearm. Swelling improved but still quite significant. Sensation intact. ROM of fingers diminished. 2 puncture paniagua without drainage r obvious abscess. Neuro:? Alert and orientated x3,? sensation to touch intact in all extremities, no gross deficits noted of cranial nerves. Psych:? Patient has a well-kept appearance, appropriate affect, mental status attitude thought context and judgment are appropriate for age. Objective Labs Result Diagrams: 06/23/21 21:20 06/24/21 04:08 Labs: Laboratory Results - last 24 hr 06/23/21 06/23/21 06/23/21 16:45 20:00 20:00 WBC RBC Hgb Hct MCV MCH MCHC RDW Plt Count Neut % (Auto) Lymph % (Auto) [place] % (Auto) Eos % (Auto) Baso % (Auto) Neut # (Auto) Lymph # (Auto) [place] # (Auto) Eos # (Auto) Baso # (Auto) Sodium Potassium Chloride Carbon Dioxide BUN Creatinine Estimated GFR BUN/Creatinine Ratio Glucose Calcium Procalcitonin Nasal Screen MRSA (PCR) Negative for mrsa SARS-CoV-2 (PCR) Negative Cancelled 06/23/21 06/24/21 06/24/21 21:20 04:08 04:08 WBC 11.2 H RBC 4.67 Hgb 10.8 L Hct 33.3 L MCV 71.4 L MCH 23.1 L MCHC 32.4 RDW 14.4 Plt Count 177 Neut % (Auto) 70.4 Lymph % (Auto) 18.5 L [place] % (Auto) 8.9 Eos % (Auto) 1.4 L Baso % (Auto) 0.8 Neut # (Auto) 7900 H Lymph # (Auto) 2100 [place] # (Auto) 1000 H Eos # (Auto) 200 Baso # (Auto) 100 Sodium 137 Potassium 4.2 Chloride 106 Carbon Dioxide 27 BUN 17 Creatinine 0.81 Estimated GFR > 60 BUN/Creatinine Ratio 21.0 Glucose 110 Calcium 8.9 Procalcitonin 0.07 Nasal Screen MRSA (PCR) SARS-CoV-2 (PCR) [facility] Medical History Breast cancer Hyperlipidemia Hypertension Multiple sclerosis Surgical History H/O mastectomy Family History Father Hypertension Mother No problems noted. Social History household members: spouse Smoking Status: Former smoker alcohol intake: current Assessment & Plan Assessment & Plan narrative: 76 y/o female with a history of hypertension, hyperlipidemia,multiple sclerosis, and breast cancer, admitted with tenosynovitis following a cat bit to the left hand 1. Tenosynovitis of the left hand after cat bite. - CT scan reveals tenosynovitis - continue unasyn, transition to PO antibiotics if continued improvement in swelling and hand function. - appreciate orthopedic surgery consultation. - continue pain control. 2. Hypertension Continue HCTZ and Losartan Blood pressure elevated tonight, again today but likely due to pain. Suspect will improve over time. 3. Hyperlipidemia Continue statin 4. Hypokalemia secondary to HCTZ repleted with 40 po potassium 5. History of Multple Sclerosis in remission 6. Hypothyroidism Continue Levothryoxine and Liothyrone DVT prophylaxis, lovenox 40 mg sq daily Patient indicates her is her surrogate decision maker. She would like to be a full code and will note this in her record I have utilized all available methods to review, updated, and confirm the patients current medications Time Spent With Patient Critical Care time: I spent a total of [] minutes of critical care time on this patient's care today; this time is exclusive of procedural time.
--- NOTE | 2021-06-24 17:25 | PC.NURSE ---
Addendum entered by Nicolas Zhao R.N. 06/24/21 17:26: swollen. Patient states there is improvement in the movement of her fingers and states pain is better managed today. Call light within reach. Will continue to monitor. Original Note: Assumed care of patient for afternoon at 1500. Patient sitting in bed comfortably, left hand and arm elevated on pillows with an ice pack in place. No drainage noted to hand, but it remains red and swollem
[2021-06-24] MEDS: ATORVASTATIN 20 MG TABLET PO (20:46)
[2021-06-24] MEDS: SENNOSIDES 8.6 MG TABLET 17.2 MG PO (20:47)
[2021-06-24] MEDS: TEMAZEPAM 15 MG CAPSULE PO (20:48)
[2021-06-24] MEDS: OXYCODONE IR 5 MG TABLET PO (20:48)
[2021-06-25] VITALS: BP 148/63; PULSE 50; RESP 17; TEMP 36.3; O2SAT 97
[2021-06-25] MEDS: KETOROLAC 30 MG/ML VIAL 15 MG IV (03:26)
[2021-06-25 04:00] VITALS: BP 132/61; PULSE 47; RESP 14; TEMP 36.6; O2SAT 97
[2021-06-25] MEDS: AMPICILLIN/SULBACTAM 3 GM 3 GM in SODIUM CHLORIDE 0.9% 100 ML IV (05:22)
[2021-06-25] MEDS: ACETAMINOPHEN 325 MG TABLET 975 MG PO (05:22)
[2021-06-25] MEDS: LEVOTHYROXINE 50 MCG TABLET PO (06:38)
[2021-06-25 07:34] VITALS: O2SAT 98
--- NOTE | 2021-06-25 07:41 | PM.DS.1 ---
History of Present Illness History of Present Illness Date Patient Seen: 06/25/21 Time Patient Seen: 07:41 Chief complaint: bit by her cat yesterday, swollen and painful Narrative: 76y/o female with history hypertension, hyperlipidemia, hypothyroidism,multiple sclerosis who was lifting her cat and sustained a bit to her left hand. She called the agricultural sciences professor line and augmentin was prescribed. She took the augmentin but noted increased swelling, pain, and redness of the left hand. She was unable to sleep last night because of the severe pain. She called the agricultural sciences professor line again and was instructed to come to the emergency department for further evaluation.? The patient underwent CT of the left hand which revealed evidence to suggest tenosynovitis. She was started on Unasyn, given pain medications and admitted to the hospital.? Patient reports her hand is starting to throb now. She has had no fever, chills, nausea, or vomiting. She denies diarrhea, shortness of breath, headache, or any other joint pains or rashes.? Patient is admitted to the hospital for inpatient treatment of tenosynovitis following a cat bite. Discharge Providers Provider Date of admission: 06/23/21 18:50 Discharge Date: 06/25/21 Primary care physician: Yvette Humphries MD Consults: 06/23/21 15:54 Consult to Orthopedic Surgery Stat Comment: Consulting Provider: Cherelle Bourne Reason for consultation: left hand cat bite Has provider been notified: Yes 06/23/21 21:08 Consult to Physician Routine Comment: Consulting Provider: Cherelle Bourne Reason for consultation: tenosynovitis from cat bite Has provider been notified: Yes Discharge provider: Yvette Humphries MD Summary Hospital Course Discharge Diagnosis: 1. Tenosynovitis of the left hand after cat bite 2. Hypertension 3. Hyperlipidemia 4. Hypokalemia 5. History of Multple Sclerosis 6. Hypothyroidism Hospital Course: Patient had uneventful inpatient stay. She was started on IV Unasyn with improvement in swelling and pain. Culture grew pasteurella multoceda. Orthopedic consultation and CT revealed tenosynovitis with recommendation to transition to p.o. antibiotics when able and discharge to home on the same. She did have slightly low potassium that was repleted with normalization of values. On day of discharge she is afebrile with stable vital signs throughout. Planned follow-up in 1-2 weeks. Time spent on Discharge and Coordination of post-hospital care: 35 minutes Status at Discharge Cognitive/behavioral status at discharge: at baseline, oriented Functional status at discharge: independent ambulation Overall status at discharge: patient is progressing back to baseline Exam Vital Signs (past 8 hours): - 06/25/21 00:00 06/25/21 04:00 06/25/21 07:34 Temperature 97.3 F L 97.8 F Pulse Rate 50 L 47 L Respiratory Rate 17 14 Blood Pressure 148/63 H 132/61 Pulse Oximetry 97 97 98 Oxygen Delivery Method Nasal Cannula Oxygen Flow Rate 2 Narrative Exam Narrative: GENERAL: Alert and oriented, appearing stated age and in no acute distress. HEENT: Head normocephalic/atraumatic. Extraocular movements intact. LUNGS: Clear to ausculation bilaterally, no wheezes, rhonchi or rales. CV: Normal S1 and S2 with regular rate and rhythm, no audible murmurs, rubs or gallops. ABDOMEN: Soft, non-tender, non-distended, no organomegaly. Positive bowel sounds. EXTREMITIES: Mild left hand erythema with 2 puncture paniagua without draiage. Assocated tenderness and edema to level of distal forearm. Sensation intact. ROM of fingers diminished. Neuro:? Alert and orientated x3,? sensation to touch intact in all extremities, no gross deficits noted of cranial nerves. NEURO: Cranial nerves II through XII grossly intact, no focal deficits. PSYCH: Alert and oriented x 3. SKIN: See above. Objective Labs Result Diagrams: 06/23/21 21:20 06/24/21 04:08 [facility] Medical History Breast cancer Hyperlipidemia Hypertension Multiple sclerosis Surgical History H/O mastectomy Family History Father Hypertension Mother No problems noted. Social History household members: spouse Smoking Status: Former smoker alcohol intake: current Discharge Plan Discharge Plan Patient Disposition: Home Discharge orders & Medications Prescriptions: New amoxicillin-pot clavulanate 875-125 mg Tablet 1 tab PO BID Qty: 26 0RF Continued atorvastatin 20 mg Tablet 20 mg PO BEDTIME 0RF liothyronine 5 mcg Tablet 5 mcg PO DAILY 0RF levothyroxine 50 mcg Tablet 50 mcg PO DAILY 0RF losartan 25 mg Tablet 25 mg PO DAILY 0RF hydrochlorothiazide 25 mg Tablet 25 mg PO DAILY 0RF Follow up/Referrals: Yvette Humphries MD [Primary Care Provider] - Diet/Activity/Treatments Diet: Diet as Tolerated Skin/Wound/Dressing Care Report to your healthcare provider any signs of infection, such as:: chills, fever, increased pain, unusual drainage and unusual redness Visit Report/Discharge Packet Instructions: DI for Animal Bites Discharge Data Primary Care Provider: Yvette Humphries
[2021-06-25 08:52] VITALS: BP 116/56; PULSE 88
[2021-06-25] MEDS: LIOTHYRONINE 5 MCG TABLET PO (08:52)
[2021-06-25] MEDS: LOSARTAN 25 MG TABLET PO (08:52)
[2021-06-25] MEDS: DOCUSATE 100 MG CAPSULE PO (08:53)
[2021-06-25] MEDS: AMOXICILLIN/CLAV 875/125 MG 1 TAB PO (08:53)
[2021-06-25] MEDS: hydroCHLOROthiazide 25 MG TABLET PO (08:55)
[2021-06-25 09:07] VITALS: BP 147/66; PULSE 53; RESP 16; TEMP 35.9; O2SAT 97
[2021-06-25 09:25] LABS: Add Manual Diff / Slide Review NO; Basophils Absolute Auto 100 /uL (0-100); Basophils Percent Auto 0.5 % (0-2); Eosinophils Absolute Auto 200 /uL (0-450); Eosinophils Percent Auto 2.2 % (2-4); Hemoglobin 10.7 g/dL (12.0-16.0); Lymphocytes Absolute Auto 1900 /uL (1100-4500); Lymphocytes Percent Auto 18.2 % (25-40); Mean Corpuscular HGB Conc 32.3 % (30-36); Mean Corpuscular Hemoglobin 23.2 PG (26-34); Mean Corpuscular Volume 71.8 fL (80-100); Monocytes Absolute Auto 800 /uL (0-900); Monocytes Percent Auto 7.5 % (3-14); Neutrophils Absolute Auto 7300 /uL (1500-7000); Neutrophils Percent Auto 71.6 % (50-75); Platelet Count 171 X10^3/uL (150-400); Red Blood Cell Count 4.59 X10^6/uL (4.0-5.2); Red Cell Distribution Width 14.1 % (11.6-14.8); White Blood Cell Count 10.2 X10^3/uL (4.5-11.0)
[2021-06-25 09:41] LABS: Alanine Aminotransferase 23 IU/L (<35); Albumin 3.7 g/dL (3.5-5.0); Albumin Globulin Ratio 1.3 (1.0-2.8); Alkaline Phosphatase 61 U/L (38-126); Aspartate Aminotransferase 29 IU/L (14-36); BUN Creatinine Ratio 19.2 (6-22); Bilirubin Total 0.4 mg/dL (0.2-1.3); Blood Urea Nitrogen 14 mg/dL (7-17); Calcium 9.3 mg/dL (8.4-10.2); Carbon Dioxide 30 mmol/L (22-32); Chloride 107 mmol/L (98-107); Estimated Glomerular Filt Rate > 60 mL/min (>60); Globulin 2.9 g/dL (1.7-4.1); Glucose 97 mg/dL (80-110); HEMOLYSIS < 15 (0-50); Sodium 140 mmol/L (137-145); Total Protein 6.6 g/dL (6.3-8.2)
== END 2021-06-25 09:48 | disposition home or self-care (01) ==
LOC: ED 17:39 → AC 19:36 → ICU 06-24 07:17 → AC 06-25 09:52
PROVIDERS: Internal Medicine; Admitting Provider Internal Medicine; Emergency Provider Nurse Practitioner Critical Care Medicine; PCP Student in an Organized Health Care Education/Training Program; Referring Provider Nurse Practitioner Critical Care Medicine; Visit Provider Student in an Organized Health Care Education/Training Program
DX: M65.142 Other infective (teno)synovitis, left hand (principal); A28.0 Pasteurellosis; L03.114 Cellulitis of left upper limb; W55.01XA Bitten by cat, initial encounter; E87.6 Hypokalemia; G35 Multiple sclerosis; I10 Essential (primary) hypertension; E78.5 Hyperlipidemia, unspecified; E03.9 Hypothyroidism, unspecified; Z20.822 Contact with and (suspected) exposure to COVID-19; Z23 Encounter for immunization
CPT/HCPCS: 36415; 73201; 80048; 80053; 84145; 85025; 85651; 86140; 87040; 87070; 87075; 87077; 87186; 87205; 87635; 87797; 90471; 94760; 96365; 96366; 96375; 96376; 99284; 99285; C9803; G0378; 90715; J0295; J1170; J1885; J2405; Q9967

== ENCOUNTER → 2021-07-18 12:07 | Outpatient (CLI) | payer OTHER, SELFPAY ==
[2021-06-23 19:52] VITALS: BMI 27.2
--- NOTE | 2021-07-18 | DI.RAD.S_ITS ---
PROCEDURE: XR KNEE RT 3V INDICATIONS: Pain in right knee TECHNIQUE: 3 views of the knee were acquired. COMPARISON: None. FINDINGS: Bones: No fractures or dislocations. No suspicious bony lesions. Joint spaces are preserved. Soft tissues: No joint effusion. No suspicious soft tissue calcifications. IMPRESSION: Unremarkable right knee radiographs Approved by: Wallace Alcocer M.D. on 07/18/2021 at 15:11
== END ==
PROVIDERS: PCP Student in an Organized Health Care Education/Training Program; Referring Provider Student in an Organized Health Care Education/Training Program; Visit Provider Student in an Organized Health Care Education/Training Program
DX: M25.561 Pain in right knee (principal)
CPT/HCPCS: 73562

== ENCOUNTER → 2021-08-21 17:28 | Outpatient (CLI) | payer OTHER, SELFPAY ==
--- NOTE | 2021-08-21 | DI.MRI.S_ITS ---
PROCEDURE: MR HAND LT WO CON INDICATIONS: open bite of left hand, initial encounter TECHNIQUE: Noncontrast coronal T1 spin echo and T2 fast spin echo with fat saturation, axial proton density fast spin echo and T2 fast spin echo with fat saturation, sagittal T1 spin echo and STIR through the hand and fingers. COMPARISON: [facility], CT, CT UE LT W CON, 06/23/2021, 17:03. FINDINGS: Image quality: Excellent. Bones: The bones are normally aligned, without marrow contusions or fractures. No intra-osseous lesions. Degenerative changes are seen at the radiolunate articulation with subchondral edema and overlying cartilage loss. Mild subchondral edema is seen in the distal scaphoid. Nonspecific cystic changes are seen in the 2nd metacarpal head. Soft tissues: The 3rd through 5th extensor tendons are not well visualized at the level of the proximal carpal row, and are suspected to be completely torn. Tendon stumps are by up to 2.4 cm. Some attenuated 3rd extensor tendon fibers may remain in continuity. There is associated 4th extensor compartment tenosynovitis. The extensor digiti minimi tendon is intact. There is mild tenosynovitis of the 3rd and 5th flexor tendons. Mild tenosynovitis of the flexor pollicis longus tendon is also seen. Visualized muscles demonstrate normal bulk and internal signal. No intramuscular masses identified. IMPRESSION: 1. Suspected full-thickness tearing of the 3rd through 5th extensor digitorum communis tendons at the level of the proximal carpal row with separation of tendon fibers by up to 2.4 cm. Some attenuated 3rd extensor tendon fibers may remain in continuity. 2. Mild tenosynovitis of the flexor pollicis longus tendon as well as the 3rd and 5th flexor tendons at the level of the metacarpals and proximal digits. 3. Radiolunate degenerative changes with subchondral edema. Dictated by: Rubio Shukla M.D. on 08/22/2021 at 8:27 Approved by: Rubio Shukla M.D. on 08/22/2021 at 8:43
== END ==
PROVIDERS: Family Provider Student in an Organized Health Care Education/Training Program; PCP Student in an Organized Health Care Education/Training Program; Referring Provider Orthopaedic Surgery; Visit Provider Orthopaedic Surgery
DX: S61.452A Open bite of left hand, initial encounter (principal); M65.842 Other synovitis and tenosynovitis, left hand
CPT/HCPCS: 73218

== ENCOUNTER 2021-08-29 11:15 | Outpatient (RCR) | payer OTHER, SELFPAY ==
--- NOTE | 2021-08-08 18:26 | PT.OIE ---
Current Diagnoses Muscle weakness (generalized) (08/08/21) Synovitis and tenosynovitis, unspecified (08/08/21) Past Medical History (Last Reviewed 06/24/21 @ 08:13 by Cherelle Bourne MD) Breast cancer Hyperlipidemia Hypertension Multiple sclerosis Past Surgical History (Last Reviewed 06/24/21 @ 08:13 by Cherelle Bourne MD) H/O mastectomy Visit Care Team Role Provider Type Yvette Humphries MD Attending Provider Physician Family Provider Primary Care Provider Referring Provider Specialty: [facility] Practice Address: [address] [place] [address] [place], [facility] Email: [email or web address] Physical Therapy Initial Evaluation PT-OP-A Visit Information Start: 08/07/21 21:25 Freq: Status: Active Protocol: Document 08/08/21 13:04 LRN (Rec: 08/08/21 18:21 LRN [id number]) Out-Patient Physical Therapy Visit Information Visit Information Visit Type Initial Evaluation Visit Start Time 13:04 Visit Stop Time 13:50 Total Visit Minutes 46 Visit Number 1 Evaluation Information Evaluation Date 08/08/21 Precautions Precautions MS, Thyroid disorder, History of Breast CA with removal of R breast - 8 yrs ago PT-OP-B Current Condition Start: 08/07/21 21:25 Freq: Status: Active Protocol: Document 08/08/21 13:04 LRN (Rec: 08/08/21 18:21 LRN [id number]) Current Condition History of Current Condition Onset Date 06/22/21 Current Complaints Can't lift L middle finger. History of Current Condition Cat bite resulted in hospital stay from 06/23-11/07 due to infection in L hand. Was on anti-biotics and swelling went down, but can no longer raise the middle finger. Can't type. Every week gets better with overall wrist strength. This week told by Dr. Cleaning that she had a ruptured tendon of the middle finger causing the finger unable to lift. Consideration is to connect the tendon to the middle finger; therefore the pt does not think it would be good. Moved to [place] last year from [place]. Future Testing and Treatments Planned MRI of L hand. Treatment Goals Patient/Caregiver Goals Pt goal is to be able to use the L hand to type, and to be able to turn the L arm into supination (with yoga) mainly with arm out to side. 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 Current Functional Impairments (Reported) Functional Limitations- ADL's Has a good audit mgr. Functional Limitations- Recreation/ This week able to do downward Hobbies dog yoga, but has pain with holding L arm out to side and has a lot of pain turning the arm with palm up. 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 MS diagnosis 18 yrs ago, decreasing relapse onset and decreasing lesions in brain. PT-OP-C Subjective Start: 08/07/21 21:25 Freq: Status: Active Protocol: Document 08/08/21 13:04 LRN (Rec: 08/08/21 18:21 LRN [id number]) Patient Questionnaires Quick Dash- Upper Extremity Quick Dash UE Score 11.36 Quick Dash UE Impairment 1 to 19% Impaired (Score 1-19) OP-PT Pain Assessment Pain Assessment Grid Paper Pain Assessment Grid Completed Yes Location L shoulder Pain Location Details Top of L shoulder Intensity 1 Scale Used Numeric (0 - 10) Description Aching Frequency When extending arm L middle finger Pain Location Details L middle finger and wrist Intensity 2 Scale Used Numeric (0 - 10) Frequency Only when stretching, WBing on L wrist, or lifting L middle finger PT-OP-F Manual Assessment Start: 08/07/21 21:25 Freq: Status: Active Protocol: Document 08/08/21 13:04 LRN (Rec: 08/08/21 18:21 LRN [id number]) Manual Assessments Soft Tissue Assessment Soft Tissue Mobility Assessment Visible atrophy of intrinsic L hand muscles. PT-OP-J Posture/Palpation/Skin Start: 08/07/21 21:25 Freq: Status: Active Protocol: Document 08/08/21 13:04 LRN (Rec: 08/08/21 18:21 LRN [id number]) Palpation Assessment Location L wrist Palpation Location L wrist Palpation Details 3rd finger, 1st phalanx, proximally is posterior and tender. Capitate appears to be shifted volarly. PT-OP-K Range of Motion Start: 08/07/21 21:25 Freq: Status: Active Protocol: Document 08/08/21 13:04 LRN (Rec: 08/08/21 18:21 LRN [id number]) Finger Goniometric Range of Motion Finger Right Fifth Finger ROM WFL Yes MCP Extension Active (degrees) 34 Right Fourth Finger ROM WFL Yes MCP Extension Active (degrees) 10 Right Third Finger ROM WFL Yes MCP Extension Active (degrees) 8 Right Second Finger ROM WFL Yes MCP Extension Active (degrees) 12 Left Fifth Finger ROM WFL No MCP Extension Active (degrees) 28 Left Fourth Finger ROM WFL No MCP Extension Active (degrees) 0 Left Third Finger ROM WFL No MCP Extension Active (degrees) 0 Left Second Finger ROM WFL Yes MCP Extension Active (degrees) 12 PT-OP-L Special Tests Start: 08/07/21 21:25 Freq: Status: Active Protocol: Document 08/08/21 13:04 LRN (Rec: 08/08/21 18:21 LRN [id number]) Special Tests Neural Special Tests- Upper Body Upper Limb Tension Test Test Results + Ulnar & Median nerve of L UE Comments Pain onset with positioning of elbow in extension. PT-OP-M Strength Start: 08/07/21 21:25 Freq: Status: Active Protocol: Document 08/08/21 13:04 LRN (Rec: 08/08/21 18:21 LRN [id number]) Elbow/Forearm Strength Elbow and Forearm Manual Muscle Testing Right Comments 5/5 all motions Left Extension (C7) 4+ Good+ Pronation 4+ Good+ Comments 5/5 except as indicated above. Wrist Strength Wrist Manual Muscle Testing Right Comments 5/5 all motions Left Flexion (C7) 4 Good Comments 5/5 except as indicated above. Finger/Thumb Strength Finger Manual Muscle Testing Right fingers Extension (thumb C8) 5 Normal Adduction 4- Good- Abduction (fingers T1) 5 Normal Left Fifth Extension (thumb C8) 5 Normal Adduction 5 Normal Abduction (fingers T1) 4+ Good+ Left Fourth Extension (thumb C8) 0 Zero Adduction 5 Normal Abduction (fingers T1) 5 Normal Left Third Extension (thumb C8) 0 Zero Adduction 3 Fair Abduction (fingers T1) 4 Good Left Second Extension (thumb C8) 5 Normal Adduction 5 Normal Abduction (fingers T1) 5 Normal Hand Research Software Engineer/Pinch Strength Hand Dominance Hand Dominance Right PT-OP-Q Treatments Start: 08/07/21 21:25 Freq: Status: Active Protocol: Document 08/08/21 13:04 LRN (Rec: 08/08/21 18:21 LRN [id number]) Self-Care/Home Management Treatment Education Other Education Discussed results of evaluation, goals, and plan of care (POC). Pt agreeable to goals and POC. PT-OP-T Assessment and Plan Start: 08/07/21 21:25 Freq: Status: Active Protocol: Document 08/08/21 13:04 LRN (Rec: 08/08/21 18:21 LRN [id number]) Physical Therapy Assessment Rehab Potential Rehabilitation Potential Fair Evaluation Complexity Number of Personal Factors/Comorbidities 1-2 Number of Body Systems Impaired 4 or More Clinical Presentation at Evaluation Evolving Impairments Impairments Activity Tolerance,Edema, Functional Mobility,Pain,ROM, Strength Goals Three Impairment Decreased L forearm mobility ( into supination) Short Term Goal (STG) Pt will be educated in a self care HEP of UE neural stretches and forearm ROM exercises. STG Duration 08/30/21 Intermediate Goal (LTG) Pt will be able to turn the L arm into supination (with yoga , mainly arm out to side) with greater ease. LTG Duration 10/07/21 Two Impairment Decreased L middle finger ext strength Short Term Goal (STG) Pt will be educated in L hand finger extension glides and extension strengthening exercises. STG Duration 08/23/21 Reagent Tender Goal (LTG) Pt will be able to use the L hand to type, LTG Duration 10/07/21 One Impairment Lacks appropriate self care HEP. Intermediate Goal (LTG) Pt will be independent with a self care HEP of elbow, wrist and finger and UE neural glide exercises. LTG Duration 10/07/21 Assessment Summary Assessment Pt presents with decreased L hand middle finger functional mobility and strength. She lacks finger L hand middle finger ext at MCP, PIP & DIP joint. She has atrophy of L hand intrinsic muscles and weakness of the L wrist with flexion and pronation. She appears to have a mechanical dysfunction at the wrist at the carpal-metacarpal junction of the middle finger where there is apparent swelling. She also demonstrates general L UE neural tension. The pt would benefit from a nighttime forearm wrist splint to limit L wrist flexion and improve mechancal function at the wrist and possibly the hand. The pt has an MRI of the L hand pending that will help to assess tendon and soft tissue integrity, as the pt has been told she has had a tendon tear (location not identified) . The pt will benefit from skilled physical therapy for focus on decreasing inflammation at the dorsal side of L wrist, education in L UE, wrist & middle finger ROM & strengthening. Pt education will be focused on education in a self intermediate exercise. If the pt shows no improvement it would be appropriate for the pt to be referred to a Certified Hand Specialist for further care and possible splinting needs. Physical Therapy Plan Frequency and Duration Frequency of Treatment 2x/Week Plan of Care Start Date 08/08/21 Plan of Care End Date 10/07/21 Therapeutic Interventions Therapeutic Interventions Home Exercise Program,Joint Mobilizations,Manual Therapy, Patient/Caregiver Education, Self-Care/Home Management,Soft Tissue Mobilization,Taping, Therapeutic Exercises Modalities Cold Pack/Ice Massage,Hot Packs,Paraffin Bath,Ultrasound Next Visit Focus/Plan Next Note Type Treatment Note Next Visit Plan Assess response to over-the- counter wrist splint. Check hand sensation and nerve sensation/tension; Check AROM of PIP/DIP joints of fingers, Check audit mgr strength and finger flexion strength ( primarily 3rd digit); Check carpal mobility (Middle finger , 1st phalange with Capitate and Capitate-Scaphoid (thumb side) and Capitate-Lunate ( pinky side)). US to proximal dorsal zone 6 and distal zone 7 (area of inflammation) of L hand. Strengthen lumbricals; tendon glides and wrist/finger extensors. If pt has not improved in 6 weeks, refer pt for Certified Hand Specialist evaluation.
--- NOTE | 2021-08-08 18:26 | PT.OPPOC ---
Physical, Occupational & Speech Therapy At [facility] Current Diagnoses Muscle weakness (generalized) (08/08/21) Synovitis and tenosynovitis, unspecified (08/08/21) Visit Care Team Role Provider Type Yvette Humphries MD Attending Provider Physician Family Provider Primary Care Provider Referring Provider Specialty: Family Practice Address: [address] [place] [address], [facility] Email: Plan Of Care PT-OP-T Assessment and Plan Start: 08/07/21 21:25 Freq: Status: Active Protocol: Document 08/08/21 13:04 LRN (Rec: 08/08/21 18:21 LRN [id number]) Physical Therapy Assessment Rehab Potential Rehabilitation Potential Fair Evaluation Complexity Number of Personal Factors/Comorbidities 1-2 Number of Body Systems Impaired 4 or More Clinical Presentation at Evaluation Evolving Impairments Impairments Activity Tolerance,Edema, Functional Mobility,Pain,ROM, Strength Goals Three Impairment Decreased L forearm mobility ( into supination) Short Term Goal (STG) Pt will be educated in a self care HEP of UE neural stretches and forearm ROM exercises. STG Duration 08/30/21 Investigator Operator Goal (LTG) Pt will be able to turn the L arm into supination (with yoga , mainly arm out to side) with greater ease. LTG Duration 10/07/21 Two Impairment Decreased L middle finger ext strength Short Term Goal (STG) Pt will be educated in L hand finger extension glides and extension strengthening exercises. STG Duration 08/23/21 Fpc Goal (LTG) Pt will be able to use the L hand to type, LTG Duration 10/07/21 One Impairment Lacks appropriate self care HEP. Fpc Goal (LTG) Pt will be independent with a self care HEP of elbow, wrist and finger and UE neural glide exercises. LTG Duration 10/07/21 Assessment Summary Assessment Pt presents with decreased L hand middle finger functional mobility and strength. She lacks finger L hand middle finger ext at MCP, PIP & DIP joint. She has atrophy of L hand intrinsic muscles and weakness of the L wrist with flexion and pronation. She appears to have a mechanical dysfunction at the wrist at the carpal-metacarpal junction of the middle finger where there is apparent swelling. She also demonstrates general L UE neural tension. The pt would benefit from a nighttime forearm wrist splint to limit L wrist flexion and improve mechancal function at the wrist and possibly the hand. The pt has an MRI of the L hand pending that will help to assess tendon and soft tissue integrity, as the pt has been told she has had a tendon tear (location not identified) . The pt will benefit from skilled physical therapy for focus on decreasing inflammation at the dorsal side of L wrist, education in L UE, wrist & middle finger ROM & strengthening. Pt education will be focused on education in a self detention exercise. If the pt shows no improvement it would be appropriate for the pt to be referred to a Certified Hand Specialist for further care and possible splinting needs. Physical Therapy Plan Frequency and Duration Frequency of Treatment 2x/Week Plan of Care Start Date 08/08/21 Plan of Care End Date 10/07/21 Therapeutic Interventions Therapeutic Interventions Home Exercise Program,Joint Mobilizations,Manual Therapy, Patient/Caregiver Education, Self-Care/Home Management,Soft Tissue Mobilization,Taping, Therapeutic Exercises Modalities Cold Pack/Ice Massage,Hot Packs,Paraffin Bath,Ultrasound Next Visit Focus/Plan Next Note Type Treatment Note Next Visit Plan Assess response to over-the- counter wrist splint. Check hand sensation and nerve sensation/tension; Check AROM of PIP/DIP joints of fingers, Check radar engineering teacher strength and finger flexion strength ( primarily 3rd digit); Check carpal mobility (Middle finger , 1st phalange with Capitate and Capitate-Scaphoid (thumb side) and Capitate-Lunate ( pinky side)). US to proximal dorsal zone 6 and distal zone 7 (area of inflammation) of L hand. Strengthen lumbricals; tendon glides and wrist/finger extensors. If pt has not improved in 6 weeks, refer pt for Certified Hand Specialist evaluation. Plan of Care Dates Plan of Care Start Date 08/08/21 Plan of Care End Date 10/07/21 Electronically Signed by: Ahsley Taylor, PT 08/08/21 [id number] If you are in agreement with this Plan of Care, please return a signed and dated copy. I have reviewed this Plan of Care and certify that the skilled therapy services above are required to meet the patient?s needs. Physician Signature Date Printed Name and Credentials Clinical Instructor Signature Printed Name and Credentials
--- NOTE | 2021-08-16 14:45 | PT.OTN ---
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 History of Current Condition Cat bite resulted in hospital stay from 06/23-11/07 due to infection in L hand. Was on anti-biotics and swelling went down, but can no longer raise the middle finger. Can't type. Every week gets better with overall wrist strength. This week told by Dr. Cleaning that she had a ruptured tendon of the middle finger causing the finger unable to lift. Consideration is to connect the tendon to the middle finger; therefore the pt does not think it would be good. Moved to [place] last year from [place]. Future Testing and Treatments Planned MRI of L hand. Treatment Goals Patient/Caregiver Goals Pt goal is to be able to use the L hand to type, and to be able to turn the L arm into supination (with yoga) mainly with arm out to side. 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 Functional Limitations- Recreation/ This week able to do downward Hobbies dog yoga, but has pain with holding L arm out to side and has a lot of pain turning the arm with palm up. 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 MS diagnosis 18 yrs ago, decreasing relapse onset and decreasing lesions in brain. PT-OP-C Subjective Start: 08/07/21 21:25 Freq: Status: Active Protocol: Document 08/16/21 13:52 SP (Rec: 08/16/21 15:25 SP [id number]) OP-PT Subjective Patient Comments Patient Comments Pt acquired wrist spline with stays anterior/posterior wears at night. She reported able to get a little more 3rd finger extension movement when hold arms out in front body, elbow bent but not to neutral. She stated was able to attend yoga class and complete downward dog with hand flat and lift palm with no pain but the bump on middle left hand still prominent. She noticed though when doing open book with L arm with palm face up to ceiling pain into L shld anterior arm into hand but ok if palm face down to floor, and her L shoulder is sore when reaches out to side toward over head. She has difficulty with typing has to use her L 1st digit at this time vs used to be able to type with good keyboarding skills, unable with LUE at this time. Pt reports has MRI scheduled for this Friday 08/18, hope will get results before see PT next. PT-OP-F Manual Assessment Start: 08/07/21 21:25 Freq: Status: Active Protocol: Document 08/08/21 13:04 LRN (Rec: 08/08/21 18:21 LRN [id number]) Manual Assessments Soft Tissue Assessment Soft Tissue Mobility Assessment Visible atrophy of intrinsic L hand muscles. PT-OP-J Posture/Palpation/Skin Start: 08/07/21 21:25 Freq: Status: Active Protocol: Document 08/08/21 13:04 LRN (Rec: 08/08/21 18:21 LRN [id number]) Palpation Assessment Location L wrist Palpation Location L wrist Palpation Details 3rd finger, 1st phalanx, proximally is posterior and tender. Capitate appears to be shifted volarly. PT-OP-K Range of Motion Start: 08/07/21 21:25 Freq: Status: Active Protocol: Document 08/16/21 13:52 SP (Rec: 08/16/21 15:25 SP [id number]) Wrist Goniometric Range of Motion Wrist L AROM Wrist ROM WFL No Flexion Active (degrees) 62 Extension Active (degrees) 50 Ulnar Deviation Active (degrees) 55 Radial Deviation Active (degrees) 25 Radial Deviation Passive (degrees) 25 Finger Goniometric Range of Motion Finger Left Third Finger ROM WFL No MCP Extension Active (degrees) 0 Comments When in free space elbow bend hand in front is able to get some extension 3rd finger. PT-OP-L Special Tests Start: 08/07/21 21:25 Freq: Status: Active Protocol: Document 08/08/21 13:04 LRN (Rec: 08/08/21 18:21 LRN [id number]) Special Tests Neural Special Tests- Upper Body Upper Limb Tension Test Test Results + Ulnar & Median nerve of L UE Comments Pain onset with positioning of elbow in extension. PT-OP-M Strength Start: 08/07/21 21:25 Freq: Status: Active Protocol: Document 08/16/21 13:52 SP (Rec: 08/16/21 15:25 SP [id number]) Finger/Thumb Strength Finger Manual Muscle Testing Left Third Comments 3rd pincer strength testin , 5, 6.5 lbs. Hand Active Directory Administrator/Pinch Strength Hand Strength Right Comments 36, 41, 40 lbs Left Comments 25, 23, 24 lbs PT-OP-Q Treatments Start: 08/07/21 21:25 Freq: Status: Active Protocol: Document 08/16/21 13:52 SP (Rec: 08/16/21 15:25 SP [id number]) Therapeutic Exercises Sitting Exercises median nerve AROM Sitting Exercise Name notes tension and pain over anterior shld, arm into fingers Comments discontinued at this time. finger extension Sitting Exercise Name added to HEP- individual 1-2, 4-5 Side left Resistance AROM Equipment Used gentle downward pressure proximal 3rd MCP stabilitiy support Reps/Minutes x10 Comments forearm and palm flat table, lift finger into extension UD Sitting Exercise Name added to HEP Side left Reps/Minutes x10 Comments cued awareness keep palm flat, stationary forearm, hand glide motion finger ABD Sitting Exercise Name added to HEP Side left Resistance AROM Equipment Used gentle downward pressure proximal 3rd MCP stabilitiy support Reps/Minutes x10 Comments Extra time spent: cued palm toward table, unable move 3rd digit/see m. fac opposition Sitting Exercise Name added to HEP Side left Resistance AROM, AAROM end range 5th Reps/Minutes x10 reps Comments cued 2-4 to 1st MCP tip, DIP, IP, PIP, base: finger challenge 5th wrist ext Sitting Exercise Name reverse wrist ext- added to HEP (stretch motion) Side left Resistance AAROM Equipment Used gentle downward pressure proximal 3rd MCP stabilitiy support Reps/Minutes x10 reps Comments palm flat table, forarm lift- fac re ed downward glide into ext Manual Therapy Treatment Joint Mobilizations 3rd MCP Direction PA Grade II Body Position Sitting Comments manual then PROM into wrist extension, painfree. Instructed self performance with reverse forearm lift. carpal mobs Joint 1, 2nd rows Direction med/ lat Grade II Body Position Sitting Comments manual painfree Self-Care/Home Management Treatment Education Patient Education Body Mechanics,Home Exercise Program,Posture Other Education Added finger ext, wrist ext forearm lift AAROM, abduction, opposition, UD to HEP. Extra time spent anatomy and mechanics of hand. PT-OP-T Assessment and Plan Start: 08/07/21 21:25 Freq: Status: Active Protocol: Document 08/16/21 13:52 SP (Rec: 08/16/21 15:25 SP [id number]) Physical Therapy Assessment Goals Three Impairment Decreased L forearm mobility ( into supination) Short Term Goal (STG) Pt will be educated in a self care HEP of UE neural stretches and forearm ROM exercises. STG Duration 08/30/21 Professor Of Religion Goal (LTG) Pt will be able to turn the L arm into supination (with yoga , mainly arm out to side) with greater ease. LTG Duration 10/07/21 Two Impairment Decreased L middle finger ext strength Short Term Goal (STG) Pt will be educated in L hand finger extension glides and extension strengthening exercises. STG Duration 08/23/21 Jail Goal (LTG) Pt will be able to use the L hand to type, LTG Duration 10/07/21 One Impairment Lacks appropriate self care HEP. Jail Goal (LTG) Pt will be independent with a self care HEP of elbow, wrist and finger and UE neural glide exercises. LTG Duration 10/07/21 Assessment Summary Assessment Normal hand sensation noted. Time spent getting 3rd finger pincer strength and wrist AROM measurements. Pt notes little 3rd MCP extension movement, not beyond neutral still at this time. Added HEP for muscle facilitation into finger extension, abduction and flexion to base of 1st MCP . Understands and good demonstration PA pressure prox L 3rd MCP with wrist AAROM into extension for glide and normalizing stabilization directioning. Painfree throughout tx. Physical Therapy Plan Frequency and Duration Frequency of Treatment 2x/Week Plan of Care Start Date 08/08/21 Plan of Care End Date 10/07/21 Therapeutic Interventions Therapeutic Interventions Home Exercise Program,Joint Mobilizations,Manual Therapy, Patient/Caregiver Education, Self-Care/Home Management,Soft Tissue Mobilization,Taping, Therapeutic Exercises Modalities Cold Pack/Ice Massage,Hot Packs,Paraffin Bath,Ultrasound Next Visit Focus/Plan Next Note Type Treatment Note Next Visit Plan Review HEP. Recheck nerve sensation/tension by PT further assessment; Check AROM of PIP/DIP joints of fingers, Check carpal mobility (Middle finger, 1st phalange with Capitate and Capitate- Scaphoid (thumb side) and Capitate-Lunate (pinky side)). US to proximal dorsal zone 6 and distal zone 7 (area of inflammation) of L hand. Strengthen lumbricals; tendon glides and wrist/finger extensors. If pt has not improved in 6 weeks, refer pt for Certified Hand Specialist evaluation.
--- NOTE | 2021-08-29 12:17 | PT.OTN ---
Current Diagnoses Muscle weakness (generalized) (08/29/21) Synovitis and tenosynovitis, unspecified (08/29/21) Physical Therapy Treatment Note PT-OP-A Visit Information Start: 08/07/21 21:25 Freq: Status: Active Protocol: Document 08/29/21 11:27 LRN (Rec: 08/29/21 12:14 LRN [id number]) Out-Patient Physical Therapy Visit Information Visit Information Visit Type Discharge Summary Visit Start Time 11:27 Visit Stop Time 11:54 Total Visit Minutes 27 Visit Number 3 Evaluation Information Evaluation Date 08/08/21 Precautions Precautions MS, Thyroid disorder, History of Breast CA with removal of R breast - 8 yrs ago PT-OP-B Current Condition Start: 08/07/21 21:25 Freq: Status: Active Protocol: Document 08/08/21 13:04 LRN (Rec: 08/08/21 18:21 LRN [id number]) Current Condition History of Current Condition Onset Date 06/22/21 Current Complaints Can't lift L middle finger. History of Current Condition Cat bite resulted in hospital stay from 06/23-11/07 due to infection in L hand. Was on anti-biotics and swelling went down, but can no longer raise the middle finger. Can't type. Every week gets better with overall wrist strength. This week told by Dr. Cleaning that she had a ruptured tendon of the middle finger causing the finger unable to lift. Consideration is to connect the tendon to the middle finger; therefore the pt does not think it would be good. Moved to [place] last year from [place]. Future Testing and Treatments Planned MRI of L hand. Treatment Goals Patient/Caregiver Goals Pt goal is to be able to use the L hand to type, and to be able to turn the L arm into supination (with yoga) mainly with arm out to side. 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 Functional Limitations- Recreation/ This week able to do downward Hobbies dog yoga, but has pain with holding L arm out to side and has a lot of pain turning the arm with palm up. 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 MS diagnosis 18 yrs ago, decreasing relapse onset and decreasing lesions in brain. PT-OP-C Subjective Start: 08/07/21 21:25 Freq: Status: Active Protocol: Document 08/29/21 11:27 LRN (Rec: 08/29/21 12:14 LRN [id number]) OP-PT Subjective Patient Comments Patient Comments MRI shows L hand 3rd and 4th digits ruptured. States her wrist strength is getting stronger when she picks up pans at home. Not a lot of pain wthen lifting fingers. She reports constantly using her hands for daily gardening and studio work. Can open and close her L hand. Seeing next September 16. States she is now able to do yoga without complaints and can type in a modified form with fingers. PT-OP-F Manual Assessment Start: 08/07/21 21:25 Freq: Status: Active Protocol: Document 08/08/21 13:04 LRN (Rec: 08/08/21 18:21 LRN [id number]) Manual Assessments Soft Tissue Assessment Soft Tissue Mobility Assessment Visible atrophy of intrinsic L hand muscles. PT-OP-J Posture/Palpation/Skin Start: 08/07/21 21:25 Freq: Status: Active Protocol: Document 08/08/21 13:04 LRN (Rec: 08/08/21 18:21 LRN [id number]) Palpation Assessment Location L wrist Palpation Location L wrist Palpation Details 3rd finger, 1st phalanx, proximally is posterior and tender. Capitate appears to be shifted volarly. PT-OP-K Range of Motion Start: 08/07/21 21:25 Freq: Status: Active Protocol: Document 08/16/21 13:52 SP (Rec: 08/16/21 15:25 SP [id number]) Wrist Goniometric Range of Motion Wrist L AROM Wrist ROM WFL No Flexion Active (degrees) 62 Extension Active (degrees) 50 Ulnar Deviation Active (degrees) 55 Radial Deviation Active (degrees) 25 Radial Deviation Passive (degrees) 25 Finger Goniometric Range of Motion Finger Left Third Finger ROM WFL No MCP Extension Active (degrees) 0 Comments When in free space elbow bend hand in front is able to get some extension 3rd finger. PT-OP-L Special Tests Start: 08/07/21 21:25 Freq: Status: Active Protocol: Document 08/08/21 13:04 LRN (Rec: 08/08/21 18:21 LRN [id number]) Special Tests Neural Special Tests- Upper Body Upper Limb Tension Test Test Results + Ulnar & Median nerve of L UE Comments Pain onset with positioning of elbow in extension. PT-OP-M Strength Start: 08/07/21 21:25 Freq: Status: Active Protocol: Document 08/16/21 13:52 SP (Rec: 08/16/21 15:25 SP [id number]) Finger/Thumb Strength Finger Manual Muscle Testing Left Third Comments 3rd pincer strength testin , 5, 6.5 lbs. Hand Microbiology Coordinator/Pinch Strength Hand Strength Right Comments 36, 41, 40 lbs Left Comments 25, 23, 24 lbs PT-OP-Q Treatments Start: 08/07/21 21:25 Freq: Status: Active Protocol: Document 08/29/21 11:27 LRN (Rec: 08/29/21 12:14 LRN [id number]) Therapeutic Exercises Sitting Exercises finger extension Sitting Exercise Name Individual ext review Side left Resistance AROM Equipment Used gentle downward pressure proximal 3rd MCP stabilitiy support Reps/Minutes 4' Comments forearm and palm flat table, lift finger into extension finger ABD Sitting Exercise Name Review Side left Resistance AROM Equipment Used gentle downward pressure proximal 3rd MCP stabilitiy support Reps/Minutes x10 Comments Extra time spent: cued palm toward table, unable move 3rd digit/see m. fac opposition Sitting Exercise Name Review Side left Resistance AROM, AAROM end range 5th Reps/Minutes x10 reps Comments cued 2-4 to 1st MCP tip, DIP, IP, PIP, base: finger challenge 5th wrist ext Sitting Exercise Name Review Side left Resistance AAROM Equipment Used gentle downward pressure proximal 3rd MCP stabilitiy support Reps/Minutes x10 reps Comments palm flat table, forarm lift- fac re ed downward glide into ext Self-Care/Home Management Treatment Education Other Education Discussed ex's to focus on and precautions with strengthening flexors > extensors, creating muscle imbalance. Discussed need for further therapy pros/cons, cost of therapy and future options. PT-OP-T Assessment and Plan Start: 08/07/21 21:25 Freq: Status: Active Protocol: Document 08/29/21 11:27 LRN (Rec: 08/29/21 12:14 LRN [id number]) Physical Therapy Assessment Goals Three Impairment Decreased L forearm mobility ( into supination) Short Term Goal (STG) Pt will be educated in a self care HEP of UE neural stretches and forearm ROM exercises. STG Duration 08/30/21 (08/29/21: MET GOAL) Police Artist Goal (LTG) Pt will be able to turn the L arm into supination (with yoga , mainly arm out to side) with greater ease. LTG Duration 10/07/21 (08/29/21: MET GOAL) Two Impairment Decreased L middle finger ext strength Short Term Goal (STG) Pt will be educated in L hand finger extension glides and extension strengthening exercises. STG Duration 08/23/21 (08/29/21: MET GOAL) Custodial Goal (LTG) Pt will be able to use the L hand to type. (08/29/21: Can type slowly) LTG Duration 10/07/21 (08/29/21: MET GOAL) One Impairment Lacks appropriate self care HEP. Police Artist Goal (LTG) Pt will be independent with a self care HEP of elbow, wrist and finger and UE neural glide exercises. (08/29/21: MET GOAL for elbwo wrist, finger; not appropriate for UE neural glide due to pain). LTG Duration 10/07/21 (08/29/21: MET GOAL) Assessment Summary Assessment Pt attends reporting improved L wrist and finger mobility, increased wrist/hand strength and improved function. Her original goals for therapy have been met, therefore the pt request for discharge is appropriate. Pt appears aware of need to continue her HEP to maximize her L hand strength/function. Pt choosing to not have her active finger ROM measured. Physical Therapy Plan Discharge Physical Therapy Discharge Reasons Patient Request Discharge Comments Pt choosing to continue with her HEP. Thank you for your referral.
== END 2021-09-04 14:16 ==
LOC: PHYS 11:15
PROVIDERS: Family Provider Student in an Organized Health Care Education/Training Program; PCP Student in an Organized Health Care Education/Training Program; Referring Provider Student in an Organized Health Care Education/Training Program; Visit Provider Student in an Organized Health Care Education/Training Program
DX: M65.9 Synovitis and tenosynovitis, unspecified (principal); M62.81 Muscle weakness (generalized)
CPT/HCPCS: 97110; 97140; 97162; 97535

== ENCOUNTER → 2021-09-23 10:38 | Outpatient (CLI) | payer OTHER, SELFPAY | PROVIDERS: Family Provider Student in an Organized Health Care Education/Training Program; PCP Student in an Organized Health Care Education/Training Program; Referring Provider Student in an Organized Health Care Education/Training Program; Visit Provider Student in an Organized Health Care Education/Training Program | DX: Z78.0 Asymptomatic menopausal state (principal); Z13.820 Encounter for screening for osteoporosis; M85.89 Other specified disorders of bone density and structure, multiple sites | CPT/HCPCS: 77080 ==

== ENCOUNTER → 2021-11-14 10:39 | Outpatient (CLI) | payer OTHER, SELFPAY ==
--- NOTE | 2021-11-14 | DI.ECHO.S_ITS ---
[facility]---------+ [facility] +---------+ : : [address] : : : : [id number] : : : : Phone: [phone]---------+ Echocardiogram Report + + :Name: MATTY SPICER Study Date: 11/14/2021 Height: 63 in : :[facility] ReadingLocation: Weight: 140 lb : : Gender: Female BSA: 1.7 m2 : :: 1945 Age: 76 yrs BP: 168/61 mmHg: :Reason For Study: Murmur : :Ordering Physician: ANTONI, : :MAXIM Performed By: Esau Zaragoza : :Referring: MAXIM CORRALES : + + Interpretation Summary The ejection fraction is estimated to be 60-65%. There is moderate concentric left ventricular hypertrophy. Diastolic parameters suggest probable normal left ventricular diastolic function and normal filling pressures. The right ventricle is normal in size and function. The right ventricular systolic pressure is estimated to be at least 25 mmHg based on an estimated right atrial pressure of 3 mm Hg. There is mild aortic regurgitation. There is mild mitral regurgitation. There is mild tricuspid regurgitation. Procedure: A two-dimensional transthoracic echocardiogram with color flow and Doppler was performed. The study quality was technically adequate. There is no prior echocardiogram noted for this patient. The patient was in normal sinus rhythm during the exam. Left Ventricle: The left ventricle is normal in size. There is moderate concentric left ventricular hypertrophy. Left ventricular systolic function is normal. The ejection fraction is estimated to be 60-65%. There are no focal wall motion abnormalities. Diastolic parameters suggest probable normal left ventricular diastolic function and normal filling pressures. Right Ventricle: The right ventricle is normal in size and function. Atria: The left atrium is mildly dilated. Right atrial size is normal. The interatrial septum grossly appears intact with no obvious evidence for an atrial septal defect. Mitral Valve: The mitral valve is normal in structure and function. There is mild mitral regurgitation. Aortic Valve: There is mild aortic valve sclerosis. There is mild aortic regurgitation. Tricuspid Valve: The tricuspid valve is normal in structure and function. There is mild tricuspid regurgitation. The right ventricular systolic pressure is estimated to be at least 25 mmHg based on an estimated right atrial pressure of 3 mm Hg. Pulmonic Valve: The pulmonic valve is normal in structure and function. There is no pulmonic valvular regurgitation. Great Vessels: The aortic root is normal size. The dimensions of the ascending aorta are normal. The IVC is of normal diameter and collapses greater than 50% with a sniff. This suggests a low right atrial pressure of 3 mm Hg. Pericardium/ Pleura There is no pericardial effusion. There is no pleural effusion. MMode/2D Measurements & Calculations LVIDd: 4.5 cm LVOT diam: 2.1 cm LVIDs: 3.1 cm Ao root diam: 2.7 cm FS: 31.1 % asc Aorta Diam: 3.2 cm IVSd: 1.4 cm LVPWd: 1.0 cm LV bey. diameter/BSA (cm/m^2): 2.7 LV sys. diameter/BSA (cm/m^2): 1.9 LA dimension: 3.2 cm RA long axis: 5.4 cm LA A2 area: 18.5 cm2 LA A4 area: 20.2 cm2 LA length (vol): 5.6 cm LA vol: 56.7 ml LA vol index: 34.1 ml/m2 TAPSE_phl: 3.5 cm Doppler Measurements & Calculations Ao V2 max: 192.0 cm/sec LVOT Max Jonny: 182.0 cm/sec Ao V2 mean: 125.0 cm/sec LV V1 max P.2 mmHg Ao max P.0 mmHg LV V1 VTI: 42.5 cm Ao mean P.0 mmHg GA(I,D): 3.1 cm2 Ao V2 VTI: 47.9 cm GA(V,D): 3.3 cm2 sev ratio: 0.89 GA indexed to BSA (cm^2/m^2): 1.8 MV E max jonny: 76.6 cm/sec TR max jonny: 232.0 cm/sec MV A max jonny: 78.2 cm/sec TR max P.5 mmHg MV E/A: 0.98 Med Peak E' Jonny: 6.3 cm/sec E/E' med: 12.2 Lat Peak E' Jonny: 10.8 cm/sec E/E' lat: 7.1 E/e' average: 9.6 MV dec time: 0.22 sec SV(LVOT): 147.2 ml AV VR_phl: 0.95 GA(VTI)/BSA_phl: 1.9 MV P1/2t-pr_phl: 65.0 msec Reading Physician:MARISOL
== END ==
PROVIDERS: Family Provider Student in an Organized Health Care Education/Training Program; PCP Internal Medicine; Referring Provider Internal Medicine; Visit Provider Internal Medicine
DX: R01.1 Cardiac murmur, unspecified (principal); I08.3 Combined rheumatic disorders of mitral, aortic and tricuspid valves
CPT/HCPCS: 93306

== ENCOUNTER → 2022-01-01 11:32 | Outpatient (ROUT) | payer OTHER, SELFPAY | PROVIDERS: Family Provider Student in an Organized Health Care Education/Training Program; PCP Internal Medicine; Visit Provider Registered Nurse | DX: D68.9 Coagulation defect, unspecified (principal) | CPT/HCPCS: 85610 ==

== ENCOUNTER → 2022-05-31 10:44 | Outpatient (CLI) | payer OTHER, SELFPAY ==
--- NOTE | 2022-05-31 | DI.MG.S_ITS ---
UNILATERAL LEFT DIGITAL SCREENING MAMMOGRAM 3D/2D WITH CAD: 05/31/2022 CLINICAL: Routine screening. Personal history of right breast cancer and right mastectomy. Comparison is made to exams dated: 05/27/2021 mammogram - [facility], 05/25/2020 mammogram, and 03/30/2019 mammogram - outside facility. There are scattered areas of fibroglandular density in the left breast (category b / 25%-50% glandular tissue). Current study was also evaluated with a Computer Aided Detection (CAD) system. No significant masses, calcifications, or other findings are seen in the breast. There has been no significant interval change. IMPRESSION: NEGATIVE There is no mammographic evidence of malignancy. A 1 year screening mammogram is recommended. This exam was interpreted at Station ID: [id number]. NOTE: For mammograms, a report in lay terms will be sent to the patient. Approximately 15% of breast malignancies will not be visualized mammographically. In the management of a palpable breast mass, a negative mammogram must not discourage biopsy of a clinically suspicious lesion. Electronically Signed By: López gibson/diego:06/02/2022 10:16:32 letter sent: Normal Exam ACR BI-RADS Category 1: Negative 3341F
== END ==
PROVIDERS: Family Provider Student in an Organized Health Care Education/Training Program; PCP Registered Nurse; Referring Provider Internal Medicine; Visit Provider Internal Medicine
DX: Z12.31 Encounter for screening mammogram for malignant neoplasm of breast (principal); Z85.3 Personal history of malignant neoplasm of breast; Z90.11 Acquired absence of right breast and nipple
CPT/HCPCS: 77063; 77067

== ENCOUNTER → 2023-06-15 09:20 | Outpatient (CLI) | payer OTHER, SELFPAY ==
--- NOTE | 2023-06-15 09:21 | DI.MG.S_ITS ---
UNILATERAL LEFT DIGITAL SCREENING MAMMOGRAM 3D/2D WITH CAD: 06/15/2023 CLINICAL: Routine screening. Personal history of right breast cancer. Comparison is made to exams dated: 05/31/2022 mammogram, 05/27/2021 mammogram - [facility], and 05/25/2020 mammogram - outside facility. There are scattered areas of fibroglandular density in the left breast (category b / 25%-50% glandular tissue). Current study was also evaluated with a Computer Aided Detection (CAD) system. No significant masses, calcifications, or other findings are seen in the breast. There has been no significant interval change. IMPRESSION: NEGATIVE There is no mammographic evidence of malignancy. A 1 year screening mammogram is recommended. This exam was interpreted at Station ID: [id number]. NOTE: For mammograms, a report in lay terms will be sent to the patient. Approximately 15% of breast malignancies will not be visualized mammographically. In the management of a palpable breast mass, a negative mammogram must not discourage biopsy of a clinically suspicious lesion. Electronically Signed By: López gibson/diego:06/15/2023 10:20:58 letter sent: Normal Exam ACR BI-RADS Category 1: Negative 3341F
== END ==
LOC: MAMMO 09:21
PROVIDERS: Family Provider Student in an Organized Health Care Education/Training Program; PCP Registered Nurse; Referring Provider Registered Nurse; Visit Provider Registered Nurse
DX: Z12.31 Encounter for screening mammogram for malignant neoplasm of breast (principal); Z85.3 Personal history of malignant neoplasm of breast; R92.322 Mammographic fibroglandular density, left breast
CPT/HCPCS: 77063; 77067

== ENCOUNTER → 2023-06-18 10:53 | Outpatient (CLI) | payer OTHER, SELFPAY ==
--- NOTE | 2023-06-18 10:55 | DI.MRI.S_ITS ---
PROCEDURE: MR SHOULDER RT WO CON INDICATIONS: rotator cuff tear or rupture of right shoulder TECHNIQUE: Noncontrast oblique coronal T2 fast spin echo with fat saturation, oblique sagittal T1 spin echo and T2 fast spin echo with fat saturation, axial T1 spin echo and T2 fast spin echo with fat saturation through the shoulder. COMPARISON: [facility], CR, XR SHOULDER 2+ VIEWS RIGHT, 03/02/2023, 13:52. FINDINGS: Image quality: Excellent. Rotator cuff: In the supraspinatus, there is full-thickness, partial width tear at the most anterior footprint of the supraspinatus, with minimal tendon retraction. In addition, there is high-grade tear at the critical zone of the posterior supraspinatus (series 8, image 16). The infraspinatus is unremarkable. The teres minor is unremarkable. Mild tendinosis of the subscapularis with low-low grade articular sided tear. No muscle edema or fatty atrophy. Bones and bursae: Mild degenerative changes of the acromioclavicular joint. Type 2 acromion. No os acromiale. Moderate subacromial/subdeltoid bursitis. Mild subchondral cystic changes in the posterior humeral head, nonspecific and may be degenerative. No acute fracture. No focal chondral defect. Capsule and soft tissues: Tear of the superior labrum. Full-thickness tear of the distal intra-articular biceps tendon. The extra-articular biceps tendon is extremely diminutive. Small glenohumeral effusion. IMPRESSION: 1. Full-thickness, partial width tear, and high-grade tear of the supraspinatus as described above. 2. Low-grade tear of the subscapularis. 3. Full-thickness tear of the distal intra-articular biceps tendon. Dictated by: Cara Edwards M.D. on 06/18/2023 at 19:09 Approved by: Cara Edwards M.D. on 06/18/2023 at 19:18
== END ==
PROVIDERS: Family Provider Student in an Organized Health Care Education/Training Program; PCP Registered Nurse; Referring Provider Orthopaedic Surgery; Visit Provider Orthopaedic Surgery
DX: M75.121 Complete rotator cuff tear or rupture of right shoulder, not specified as traumatic (principal); S46.211A Strain of muscle, fascia and tendon of other parts of biceps, right arm, initial encounter
CPT/HCPCS: 73221

== ENCOUNTER → 2023-09-28 10:53 | Outpatient (CLI) | payer OTHER, SELFPAY ==
--- NOTE | 2023-09-28 10:54 | DI.RAD.S_ITS ---
PROCEDURE: XR DEXA AXIAL SKELETON INDICATIONS: OSTEOPOROSIS SCREENING / POSTMENOPAUSAL COMPARISON: [facility], CR, XR DEXA AXIAL SKELETON, 09/23/2021, 11:04. FINDINGS: Lumbar Spine: Bone mineral density 0.931 g/cm2, T score -1.1, -1.2 Left Hip: Bone mineral density 0.838 g/cm2, T score -0.8, -0.7 Left Femoral Neck: Bone mineral density 0.705 g/cm2, T score -1.3, -1.2 Right Hip: Bone mineral density 0.777 g/cm2, T score -1.4, negative from -1.3 Right Femoral Neck: Bone mineral density 0.657 g/cm2, T score -1.7, -1.9 Fracture Risk Calculation (when applicable): 10-year fracture risk of a major osteoporotic fracture 24% and of a hip fracture 14% (T score greater or equal to -1.0 to: NORMAL) (T score from -1.1 to -2.4: OSTEOPENIA) (T score less than or equal to -2.5: OSTEOPOROSIS) IMPRESSION: There is osteopenia of the lumbar spine, left femoral neck, right hip and right femoral neck. The left hip is normal. Follow-up guidelines as follows: Osteoporosis: Consider a repeat DEXA and Vertebral Fracture Assessment (VFA) exam in 2 years or sooner if medically necessary, to reassess this patient's status. Osteopenia: Consider a repeat DEXA in 2-3 years to reassess this patient's status, or if there is a new clinical indication. Normal: Consider a repeat DEXA in 5 years or sooner, or if there is a new clinical indication. All treatment decisions require clinical judgment and consideration of individual patient factors, including patient preferences, comorbidities, previous drug use, risk factors not captured in the FRAX model (e.g., frailty, falls, vitamin D deficiency, increased bone turnover, interval significant decline in bone density ) and possible under- or over-estimation of fracture risk by FRAX. In addition, the NOF Guide recommends that FDA-approved medical therapies be considered in postmenopausal women and men age >= 50 years with a: * Hip or vertebral (clinical or morphometric) fracture * T-score of <=-2.5 at the spine or hip * Ten-year fracture probability by FRAX of >= 3% for hip fracture or >=20% for major osteoporotic fracture. People with diagnosed cases of osteoporosis or at high risk for fracture should have regular bone mineral density tests. For patients eligible for Medicare, routine testing is allowed once every 2 years. The testing frequency can be increased to one year for patients who have rapidly progressing disease, those who are receiving or discontinuing medical therapy to restore bone mass, or have additional risk factors. Dictated by: Miah Levin M.D. on 09/28/2023 at 15:20 Approved by: Miah Levin M.D. on 09/28/2023 at 15:24
== END ==
PROVIDERS: Family Provider Student in an Organized Health Care Education/Training Program; PCP Registered Nurse; Referring Provider Registered Nurse; Visit Provider Registered Nurse
DX: M85.89 Other specified disorders of bone density and structure, multiple sites (principal); Z13.820 Encounter for screening for osteoporosis; Z78.0 Asymptomatic menopausal state
CPT/HCPCS: 77080

== ENCOUNTER → 2023-10-16 11:15 | Outpatient (CLI) | payer OTHER, SELFPAY ==
[2023-10-16 11:48] LABS: Estimated Glomerular Filt Rate > 60 mL/min (>60)
== END ==
PROVIDERS: Family Provider Student in an Organized Health Care Education/Training Program; PCP Registered Nurse; Referring Provider Radiology Diagnostic Radiology; Visit Provider Radiology Diagnostic Radiology
DX: R19.8 Other specified symptoms and signs involving the digestive system and abdomen (principal)
CPT/HCPCS: 36415; 82565

== ENCOUNTER → 2023-10-17 13:28 | Outpatient (CLI) | payer OTHER, SELFPAY ==
--- NOTE | 2023-10-17 13:29 | DI.CT.S_ITS ---
PROCEDURE: CT ABDOMEN PELVIS W CON INDICATIONS: UNEXPLAINED A1c DESPITE NORMAL WT LOW CARB DIET TECHNIQUE: After the administration of intravenous contrast, axial sections acquired from the lung bases to the pubic symphysis. Coronal and sagittal reformats were performed. For radiation dose reduction, the following was used: automated exposure control, adjustment of mA and/or kV according to patient size. COMPARISON: None. FINDINGS: Image quality: Diagnostic. Lower Chest: No significant findings. ABDOMEN: Liver: No solid mass. Gallbladder: No radiopaque gallstones or wall thickening. Biliary ducts: No biliary dilation. Pancreas: No ductal dilation. Spleen: Size is within normal limits. Adrenal Glands: No adrenal nodules. Kidneys and Ureters: No hydronephrosis. No solid mass. No complex renal cystic lesion which requires follow up. Stomach and Bowel: Normal colonic caliber, without significant wall thickening. Peritoneum: No abnormal intraperitoneal fluid. No free air. Ventral Wall: No significant ventral hernia. Abdominal Nodes: No retroperitoneal or mesenteric adenopathy by size criteria. Vessels: Aorta and inferior vena cava are normal in size. PELVIS: Pelvic Organs: Unremarkable. Bladder: No bladder wall thickening, accounting for underdistention. Pelvic Nodes: No enlarged lymph nodes. Miscellaneous: No inguinal hernias are seen. Bones: No aggressive osseous abnormality. IMPRESSION: No acute abdominopelvic process. Approved by: Jordyn Nguyen M.D.,Ph.D. on 10/19/2023 at 22:18
== END ==
PROVIDERS: Family Provider Student in an Organized Health Care Education/Training Program; PCP Registered Nurse; Referring Provider Registered Nurse; Visit Provider Registered Nurse
DX: R73.03 Prediabetes (principal); R19.8 Other specified symptoms and signs involving the digestive system and abdomen; R74.8 Abnormal levels of other serum enzymes
CPT/HCPCS: 74177; Q9967

== ENCOUNTER → 2024-07-05 09:02 | Outpatient (CLI) | payer OTHER, SELFPAY ==
--- NOTE | 2024-07-05 09:04 | DI.MG.S_ITS ---
MM screening mammo unilat LT: 07/05/2024. BI-RADS: 1 CLINICAL: 79-year old female for left screening mammogram. No Tyrer-Cuzick risk score calculation due to the patient's personal history of breast cancer. Patient reports a history of right breast carcinoma diagnosed at age 65. Status-post right mastectomy. No first-degree family history of breast cancer. PRIOR EXAMS 06/15/2023, 05/31/2022, 05/27/2021. MAMMOGRAPHY TECHNIQUE: 2D and 3D (tomosynthesis) digital mammographic views obtained, with additional images as needed for full coverage. Current study was also evaluated with a Computer Aided Detection (CAD) system. DENSITY Left: B. There are scattered areas of fibroglandular density. MAMMOGRAPHY FINDINGS Left: No suspicious mass, asymmetry, microcalcification, or other abnormality seen. IMPRESSION: Left * No evidence of malignancy. RECOMMENDATIONS Left * Annual screening mammography. OVERALL ASSESSMENT CATEGORY BI-RADS-1: Negative. The [employer] recommends annual screening mammography beginning at age 40 for women with average risk of breast cancer. ELECTRONICALLY SIGNED: López Starr M.D. on 07/06/2024 at 07:47:06 AM PT Interpreting Station ID: [id number]
== END ==
PROVIDERS: Family Provider Student in an Organized Health Care Education/Training Program; PCP Registered Nurse; Referring Provider Registered Nurse; Visit Provider Registered Nurse
DX: Z12.31 Encounter for screening mammogram for malignant neoplasm of breast (principal); Z80.3 Family history of malignant neoplasm of breast; Z90.11 Acquired absence of right breast and nipple
CPT/HCPCS: 77063; 77067